=== PATIENT | male | born 1945 | race Caucasian/White ===

== ENCOUNTER → 2017-06-15 | Outpatient (CLI) | payer OTHER ==
[~2017-06-15] MED LIST: ASPI-482 PO; CELE200C PO; CINN500C2 PO; GLUC1TAB26 PO; INSU100V13 SQ; INSU100V31 SQ; LIRA0.6P2 SQ; METF100010 PO; MULT1TAB52 PO; OMEG1CAP6 PO; TRAM50TA PO; VALS1TAB14 PO; VITA400C6 PO
== END | disposition home or self-care (01) ==
LOC: SURGPAT 12:59
PROVIDERS: ATTEND Orthopaedic Surgery
DX: M17.12 Unilateral primary osteoarthritis, left knee (principal); Z96.642 Presence of left artificial hip joint
CPT/HCPCS: 36415; 87641

== ENCOUNTER 2017-07-07 06:13 | Inpatient (IN) | payer OTHER ==
--- NOTE | 2017-07-06 11:34 | PDOC1 ---
History and Physical Date of Admission Date of Admission DATE: 07/07/17 Identification/Chief Complaint Chief Complaint left knee osteoarthritis pain Problems: Source Source: Chart review History of Present Illness History of Present Illness The patient is a 71 year old male who presents to the clinic with left knee pain. He states the pain is not constant, but he can feel "contact" when he moves certain ways. He has been wearing a brace and has tried physical therapy, but neither does much for his pain. He states that he is tired of limping around. He has a history of hypertension and diabetes, for which he takes both pills and insulin. He also has a history of DVT several years ago but is not currently taking blood thinners, though he wears a compression stockings for blood clot prevention. He states his last CAD test was 50. Past Medical History Past Medical History h/o DVT, obesity, obesity hypoventilation syndrome Cardiovascular: HTN, Hyperlipidemia Endocrine: Diabetes Past Surgical History Past Surgical History: Tonsillectomy Family History Family History PE -son Family History: Obesity Social History Smoke: Quit ( - 3ppd) ALCOHOL: none Drugs: None Current Medications Current Medications Current Medications Ondansetron HCl (Zofran) 4 mg PRN Q6HRS PRN IV NAUSEA/VOMITING; Start 07/07/17 at 07:00; Stop 07/08/17 at 06:59 Fentanyl Citrate (Fentanyl 2ml Vial) 25 mcg PRN Q5MIN PRN IV MILD PAIN; Start 07/07/17 at 07:00; Stop 07/08/17 at 06:59 Fentanyl Citrate (Fentanyl 2ml Vial) 50 mcg PRN Q5MIN PRN IV MODERATE PAIN; Start 07/07/17 at 07:00; Stop 07/08/17 at 06:59 Morphine Sulfate 1 mg PRN Q10MIN PRN IV SEVERE PAIN; Start 07/07/17 at 07:00; Stop 07/08/17 at 06:59 Ringer's Solution 1,000 ml @ 30 mls/hr Q24H IV ; Start 07/07/17 at 07:00; Stop 07/07/17 at 18:59 Lidocaine HCl (Xylocaine-Mpf 1% Vial) 2 ml PRN 1X PRN ID IV START; Start at 07:00; Stop 07/08/17 at 06:59 Hydromorphone HCl (Dilaudid) 0.5 mg PRN Q10MIN PRN IV SEV PAIN, Second choice; Start 07/07/17 at 07:00; Stop 07/08/17 at 06:59 Prochlorperazine Edisylate (Compazine) 5 mg PACU PRN PRN IV NAUSEA, MRX1; Start 07/07/17 at 07:00; Stop 07/08/17 at 06:59 Active Scripts Active Reported Aspir 81 (Aspirin) 81 Mg Tablet.dr 1 Tab PO DAILY Levemir (Insulin Detemir) 100 Unit/1 Ml Vial 40 Unit SQ HS Tramadol Hcl 50 Mg Tablet 50 Mg PO Q6H PRN Celebrex (Celecoxib) 200 Mg Capsule 1 Cap PO DAILY Fhhkahzqvh-Crnxuzyjifz-Fdt Tab (Gluc/Addison-Msm#2/C/D3/Yong/Born) 1 Each Tablet 1 Each PO TID Vitamin E (Vitamin E (Dl,Tocopheryl Acet)) 400 Unit Capsule 400 Unit PO DAILY Multivitamins (Multivitamin) 1 Each Tablet 1 Tab PO DAILY Cinnamon (Cinnamon Bark) 500 Mg Capsule 500 Mg PO BID Fish Oil 1,000 Mg Capsule (Rotan-3 Fatty Acids/Fish Oil) 1 Each Capsule 1 Each PO BID Novolog (Insulin Aspart) 100 Unit/1 Ml Vial 12 Unit SQ TIDAC Diovan Hct 160-25 Mg Tablet (Valsartan/Hydrochlorothiazide) 1 Each Tablet 1 Each PO DAILY Metformin Hcl Er (Metformin Hcl) 1,000 Mg Tab.er.24 1,000 Mg PO BID76 Victoza 3-Elias (Liraglutide) 0.6 Mg/0.1 Ml Pen.injctr 1.8 Mg SQ DAILY08 Allergies Allergies: Coded Allergies: Ahefvst-Rti-Utv Reductase Inhibitor (Verified Adverse Reaction, Intermediate, 06/12/17) UNSTEADY/BLURRED VISION rosiglitazone (Verified Adverse Reaction, Intermediate, 06/12/17) WEIGHT GAIN Physical Exam General: Alert, Oriented X3, Cooperative, No acute distress HEENT: Atraumatic, EOMI Lungs: Normal air movement Heart: RRR Abdomen: Soft Extremities: No clubbing, No cyanosis, Normal pulses, Other ( mildly antalgic gait. There is trace varus alignment. No masses. No detectable effusion. Tenderness on the medial and lateral joint lines. Range of motion is 3-120 degrees. There is crepitus with range of motion, and pain at the extremes of motion. The knee is stable to varus and valgus stress without subluxation or laxity, however valgus stress is painful. Muscle strength is normal (5/5) for quadriceps and hamstrings, and muscle tone is normal. The skin is normal with no scars, rashes, lesions or ulcers. Light touch sensation is intact. No edema and no varicosities. Dorsalis pedis pulse is intact and capillary refill is normal.) Skin: No rashes, No breakdown, No significant lesion Neuro: Normal speech, Sensation intact Psych/Mental Status: Mental status NL, Mood NL Images Images IMAGING REPORT Joint survey, hips knees and ankles Clinical information: Preoperative for total knee arthroplasty Comparison: None. Findings Bones: The angle between the right hip-ankle mechanical axis and the femoral shaft is 5. The angle between the left hip-ankle mechanical axis and the femoral shaft is 5 . The mechanical axis crosses lateral to the center of the right knee indicating valgus alignment. The mechanical axis crosses medial to the center of the left knee indicating varus mechanical alignment. Joints: There is narrowing of the both knee joints. The hips and ankles show minimal degenerative changes. Soft tissue: Normal. Impression: Varus alignment of the left knee, and valgus alignment of the right knee. The difference between the mechanical axis and femoral shaft anatomic axis is 5 bilaterally. VTE Prophylaxis Ordered VTE Prophylaxis Devices: Yes VTE Pharmacological Prophylaxi: Yes Assessment/Plan Assessment/Plan We discussed the potential risks of infection, neurovascular injury, bleeding, blood clots, need for revision surgery, or other potential surgical or anesthetic complications. He is 71 years old, has left knee osteoarthritis that limits his activity, and despite some underlying risks, he would benefit from total knee arthroplasty. We discussed the expected hospitalization and recovery , and the higher risk of complications because of his diabetes and obesity. He agrees to proceed, and I don't think it is to his advantage to continue nonoperative treatment, nor to delay arthroplasty, since his health is not likely to improve in the next few years. He would best be served by total knee arthroplasty at this time. He agrees. LISTE ALEXANDER Jul 06, 2017 11:34
[2017-07-07] VITALS (8 sets, daily range): BP systolic 104–136; BP diastolic 53–74
[~2017-07-07] VITALS: Ht 185.4 cm; Wt 152.0 kg
[~2017-07-07 06:13] MED LIST changes: +CELECOXIB 200 MG CAPSULE. PO PRN; +HYDROcodone/APAP 7.5/325MG 1 TAB TABLET PO PRN; +MORPHINE SULFATE 5 MG, KETOROLAC 30 MG, ROPIVacaine 0.5% PF 60 ML, EPINEPHrine 0.5 MG i... INT ART ONE; +TRANEXAMIC ACID 1,000 MG in IV NS 50ML -- 1ST BAG INJ ONE
[2017-07-07] MEDS ORDERED: LIDOCAINE 1% PF 2 ML VIAL. ID PRN (07:00)
[2017-07-07] MEDS ORDERED: fentaNYL PF VIAL 100 MCG/2 ML VIAL IV PRN ×3 (07:00→11:45)
[2017-07-07] MEDS ORDERED: ONDANSETRON PF 4 MG/2 ML VIAL. IV PRN (07:00)
[2017-07-07] MEDS ORDERED: IV RINGERS,LACTATED 1000ML 1,000 ML IV SCH (07:00)
[2017-07-07] MEDS ORDERED: PROCHLORPERAZINE 10 MG/2 ML VIAL. IV PRN ×2 (07:00→11:45)
[2017-07-07] MEDS ORDERED: MORPHINE SULFATE 2 MG/ML DISP.SYRIN. IV PRN (07:00)
[2017-07-07] MEDS ORDERED: HYDROmorphone 2 MG/ML VIAL IV PRN (07:00)
[2017-07-07 07:41] LABS: INR 1.1 (0.8-1.1); PROTHROMBIN TIME PATIENT 13.5 SEC (11.7-14.0)
[2017-07-07] MEDS ORDERED: TRANEXAMIC ACID 1,000 MG in IV NS 50ML -- 2ND BAG INJ ONE (08:00)
[2017-07-07] MEDS ORDERED: VANCOMYCIN 1 GM VIAL. ONE (08:40)
[2017-07-07] MEDS ORDERED: PROPOFOL 20 ML IV ONE (08:51)
[2017-07-07] MEDS ORDERED: LIDOCAINE 2% PF Vial for OR 5 ML VIAL. ONE (08:51)
[2017-07-07] MEDS ORDERED: DEXAMETHASONE SOD PHOS 20 MG/5 ML VIAL. ONE (08:51)
[2017-07-07] MEDS ORDERED: ePHEDrine PF IN SALINE 50 MG/5 ML DISP.SYRIN IV ONE (08:52)
[2017-07-07] MEDS ORDERED: SUCCINYLCHOLINE 200 MG/10 ML VIAL. ONE ×2 (08:52→08:58)
[2017-07-07] MEDS ORDERED: ONDANSETRON PF 4 MG/2 ML VIAL. ONE (08:52)
[2017-07-07] MEDS ORDERED: fentaNYL PF VIAL 250 MCG/5 ML VIAL ONE (08:52)
[2017-07-07] MEDS ORDERED: ROCURONIUM 100 MG/10 ML VIAL. ONE (08:58)
[2017-07-07] MEDS ORDERED: MIDAZOLAM HCL/PF 2 MG/2 ML VIAL. ONE (09:01)
[2017-07-07] MEDS ORDERED: GLYCOPYRROLATE 1 MG/5 ML VIAL. ONE (10:26)
[2017-07-07] MEDS ORDERED: NEOSTIGMINE METHYLSULFATE 5 MG/5 ML SYRINGE. ONE (10:26)
--- NOTE | 2017-07-07 11:35 | PDOC4 ---
Operative Note Operative Note Date of Procedure: July 07, 2017 Pre-Op Diagnosis: Osteoarthritis left knee Post-Op Diagnosis: Osteoarthritis left knee Procedure: left total knee arthroplasty Surgeon: Isela Birmingham MD Molding Machine Operator Helper: Kortney Ramirez PA-C Anesthesia: General EBL: 100 mL Specimens Obtained: left knee bone and soft tissue Complications: none Implant Company: [employer] Drains: hemovac plus pain catheter Tourniquet time: 48 Minutes Tourniquet Pressure: 350 mm Hg Indications for Procedure: Arthritis pain unrelieved by nonoperative management. Findings: Severe osteoarthritis with bone on bone contact medially and at the patellofemoral joint Implants used: Size 6 left bicruciate stabilized Journey II BCS cobalt chrome femoral component, size 5 left Journey nonporous tibial baseplate, size 5 -6 10 mm left Journey II BCS XLPE articular insert, 35 mm oval Diana II resurfacing patellar component Procedure in Detail: The patient was identified in the preoperative holding area, and the correct left lower extremity was marked by me. The patient was taken to the operating room where the patient was anesthetized by the Department of Anesthesia. Preoperative antibiotics were given intravenously. Tranexamic acid 1 g was given intravenously for intraoperative hemostasis. A "time-out" procedure was performed. The patient was positioned supine on the operative table with a tourniquet on the upper left thigh. The left lower limb was thoroughly prepped and draped in sterile fashion. An impervious stockinet and adhesive drape were used such that the skin was entirely covered. An Duran leg bolanos was used. The operating team wore personal exhaust-ventilated hoods. The limb was elevated to exsanguinate it, and the tourniquet was inflated.. A midline skin incision was made with a scalpel using the patella and tibial tubercle as landmarks. Electrocautery was used for hemostasis. My assistant grocery store manager used rake retractors. A medial parapatellar arthrotomy incision was used with extension into the distal quadriceps tendon. The patella was retracted laterally and Hohmann retractors were now used by my assistant grocery store manager. Excess synovium, the menisci, and the cruciate ligaments were resected sharply. The patella was assessed and excess synovium and osteophytes around the patellar articulation were removed. The patella was measured with a caliper, cut freehand with a saw using caliper measurements, sized, and then drilled for an oval three-pegged patella component. Periarticular anesthetic injection was used in the suprapatellar pouch and distal quadriceps muscle. Whitesides's line and the transepicondylar axis were marked on the femur. An intra-medullary 5 degree cutting guide was pinned to the femur, and a distal femoral cut was made with an oscillating saw. An additional 4 mm resection was used due to the deep femoral sulcus, and deficient femoral condyle. My assistant grocery store manager held Hohmann retractors and an Army-Lupus retractor to protect the medial and lateral collateral ligaments, the patellar tendon, the skin and the other soft tissues. An anterior referencing guide was applied with external rotation of 3 to match Whitesides line. A 5-in-1 Journey II cutting guide was then applied and pinned to the femur. The posterior, anterior, and all chamfer cuts were made with the oscillating saw. An extramedullary guide was pinned to the tibia and rotational alignment and the planned resection thickness assessed. An external alignment ny was used to verify the planned cut in the varus-valgus plane and regarding posterior slope referencing the tibial tubercle, the tibial shaft, the ankle joint, and the second metatarsal. The upper tibia was cut made with an oscillating saw. My assistant grocery store manager held Hohmann retractors and a posterior cruciate ligament retractor to protect the medial and lateral collateral ligaments, the patellar tendon, the skin, the peroneal nerve and the other soft tissues. The upper tibia was sized with a trial baseplate. The posterior compartment was cleared of osteophytes and loose bodies, and posterior capsule released. Periarticular anesthetic injection was used in the posterior compartment. The box cut for a posterior stabilized component was made. A preliminary reduction was performed with a trial femur, trial tibial baseplate and trial polyethylene. Soft-tissue balancing was now performed, and extension and rotation of the alignments was checked using a guide ny in the tibial trial and a guide pin in the femur. A medial release was required, using a 10 blade scalpel, and a Arcos elevator to elevate the medial structures from the upper medial tibia. The stability was assessed using different thicknesses of tibial articular surface to find satisfactory stability and good range of motion. The rotation of the tibial component was marked on the upper tibia. Final trial reduction was now performed verifying patella tracking and tibiofemoral stability and alignment. The tibia preparation was completed with a drill, saw, and fin punch at the previously noted rotation. The final implants were verified and opened. Outer gloves were changed by the operating team. The bone cuts were washed thoroughly with the [employer] InterPulse device and dried. Two packages of Dunham + Nephew Rally HV bone cement were mixed in powdered form with 1 gm of Vancomycin, then vacuum-mixed with the monomer, and placed into a cement gun. The cut surfaces of the bone were thoroughly dried with Bower-tip suction and with laparotomy sponges for cement interdigitation. The final components were cemented into place. The knee was kept at full extension while the cement hardened, and excess cement was removed. Tranexamic acid 1 g was redosed intravenously for additional intraoperative hemostasis. A final periarticular anesthetic injection was used for pain relief. The tourniquet was released, and electrocautery was used for hemostasis. A final check of [id number]-[id number] and stability was made, and the polyethylene implant final size was chosen. The polyethylene implant was secured to the tibial baseplate, and the knee was reduced a final time. Thorough irrigation was used. Hemovac and pain catheter were used.The arthrotomy was closed with interrupted [id number] #1 PDS suture. The arthrotomy incision was then run with #1 STRATAFIX Symmetric PDS Plus Knotless suture. The subcutaneous tissues were closed with #2-0 Vicryl by my assistant grocery store manager. The skin was approximated with herbert by my assistant grocery store manager. The skin incision was then covered and reinforced with a Prevena sterile suction dressing. Needle and sponge counts were correct. There were no apparent complications. The patient returned to the recovery room in stable condition. ISELA BIRMINGHAM MD Jul 07, 2017 11:35
[2017-07-07] MEDS ORDERED: traMADol 50 MG TABLET PO PRN ×2 (11:45)
[2017-07-07] MEDS ORDERED: MORPHINE SULFATE 10 MG/ML VIAL. IV PRN (11:45)
[2017-07-07] MEDS ORDERED: MORPHINE SULFATE 4 MG/ML DISP.SYRIN. IV PRN ×3 (11:45)
[2017-07-07] MEDS ORDERED: diphenhydrAMINE 50 MG/ML VIAL IV PRN (11:45)
[2017-07-07] MEDS ORDERED: PROCHLORPERAZINE 5 MG TABLET. PO PRN (11:45)
[2017-07-07] MEDS ORDERED: DEXTROSE 50% 25 GM / 50ML DISP.SYRIN. IV PRN ×2 (11:45→14:45)
[2017-07-07] MEDS ORDERED: ACETAMINOPHEN 325 MG TABLET. PO PRN (11:45)
[2017-07-07] MEDS ORDERED: METOCLOPRAMIDE HCL 10 MG/2 ML VIAL. IV PRN (11:45)
[2017-07-07] MEDS ORDERED: 0.9 % SODIUM CHLORIDE 10 ML DISP.SYRIN. IV PRN (11:45)
[2017-07-07] MEDS ORDERED: CALCIUM CARBONATE 500 MG TAB.CHEW PO PRN (11:45)
[2017-07-07] MEDS ORDERED: oxyCODONE/APAP 5/325 1 TAB TABLET PO PRN (11:45)
[2017-07-07] MEDS ORDERED: ZOLPIDEM 5 MG TABLET. PO PRN (11:45)
[2017-07-07] MEDS ORDERED: oxyCODONE/APAP 7.5/325 1 TAB TABLET PO PRN (11:45)
[2017-07-07] MEDS: fentaNYL PF VIAL 100 MCG/2 ML VIAL IV PRN ×3 (12:00→12:26)
[2017-07-07] MEDS ORDERED: INSULIN ASPART 100 UNIT/ML 10ML VIAL. SQ ONE (12:15)
--- NOTE | 2017-07-07 12:49 | RAD ---
Left knee, 2 views, 07/07/2017: History: Postop evaluation A total knee prosthesis is in place in satisfactory position. A small radiopacity projected over the soft tissues laterally may represent a periarticular calcification or a small drop of cement. Surgical skin clips and a drain overlie the operative site anteriorly. There is no evidence of a retained surgical instrument, needle or radiopaque sponge on these 2 views. IMPRESSION: No significant postoperative abnormality is detected.
[2017-07-07] MEDS ORDERED: INFLUENZA VAX SCREEN BY RX. MC ONE (13:30)
[2017-07-07] MEDS: IV DEXTROSE 5 %-0.45 % NACL 1,000 ML IV SCH ×2 (14:52→20:41)
[2017-07-07] MEDS: SENNOSIDES/DOCUSATE 8.6/50MG TABLET. PO SCH (14:52)
[2017-07-07] MEDS: HYDROcodone/APAP 7.5/325MG 1 TAB TABLET PO PRN ×2 (14:54→20:35)
[2017-07-07] MEDS: hydroCHLOROthiazide 25 MG TABLET PO SCH (15:00)
[2017-07-07] MEDS: LOSARTAN POTASSIUM 50 MG TABLET. PO SCH (15:00)
[2017-07-07] MEDS ORDERED: WARFARIN 7.5 MG TABLET. PO ONE (16:00)
[2017-07-07] MEDS: FERROUS SULFATE 325 MG TABLET. PO SCH (16:21)
[2017-07-07] MEDS: metFORMIN XR 500 MG TAB.ER.24H PO SCH (17:03)
[2017-07-07] MEDS: INSULIN ASPART 300 UNITS/3 ML INSULN.PEN SQ SCH ×2 (17:04→17:07)
[2017-07-07] MEDS: KETOROLAC 30 MG, BUPIVACAINE MPF 0.25% 20 ML, EPINEPHrine 0.5 MG in TOTAL VOLUME SYRING... INT ART SCH (17:09)
[2017-07-07] MEDS: CELECOXIB 200 MG CAPSULE. PO SCH (20:36)
[2017-07-07] MEDS: INSULIN DETEMIR 300 UNITS/3 ML INSULN.PEN. SQ SCH (21:41)
[2017-07-08] MEDS: HYDROcodone/APAP 7.5/325MG 1 TAB TABLET PO PRN ×4 (02:45→15:40)
[2017-07-08 02:57] VITALS: BP 132/72
[2017-07-08] MEDS: KETOROLAC 30 MG, BUPIVACAINE MPF 0.25% 20 ML, EPINEPHrine 0.5 MG in TOTAL VOLUME SYRING... INT ART SCH (05:42)
[2017-07-08] MEDS ORDERED: MAGNESIUM HYDROXIDE 2,400 MG/30 ML ORAL.SUSP. PO PRN (06:00)
[2017-07-08 06:19] VITALS: BP 134/73
[2017-07-08 06:34] LABS: HEMATOCRIT 33.8 % (39.0-53.0); HEMOGLOBIN 11.5 g/dL (13.0-17.5)
[2017-07-08 06:52] LABS: INR 1.2 (0.8-1.1); PROTHROMBIN TIME PATIENT 14.9 SEC (11.7-14.0)
[2017-07-08] MEDS: IV DEXTROSE 5 %-0.45 % NACL 1,000 ML IV SCH ×2 (07:40→17:40)
[2017-07-08] MEDS ORDERED: NON FORMULARY ITEM (Liraglutide (Victoza 3-Pak) 1.8 MG) SQ SCH (08:00)
[2017-07-08 08:20] VITALS: BP 106/64
[2017-07-08] MEDS: FERROUS SULFATE 325 MG TABLET. PO SCH ×2 (08:21→17:08)
[2017-07-08] MEDS: metFORMIN XR 500 MG TAB.ER.24H PO SCH ×2 (08:22→17:08)
[2017-07-08] MEDS: SENNOSIDES/DOCUSATE 8.6/50MG TABLET. PO SCH (08:22)
[2017-07-08] MEDS: MULTIVITAMIN with MINERAL TABLET. PO SCH (08:22)
[2017-07-08] MEDS: CELECOXIB 200 MG CAPSULE. PO SCH ×2 (08:22→20:36)
[2017-07-08] MEDS: INSULIN ASPART 300 UNITS/3 ML INSULN.PEN SQ SCH ×6 (08:28→17:12)
[2017-07-08] MEDS ORDERED: FLU VACC QS2017-18 (36MOS+)/PF 0.5 ML SYRINGE. VAX IM ONE (09:00)
--- NOTE | 2017-07-08 09:45 | PDOC ---
PROGRESS NOTES Subjective Subjective No complaints Objective Vital Signs Vital Signs Date Time Temp Pulse Resp B/P (MAP) Pulse Ox O2 Delivery O2 Flow Rate FiO2 07/08/17 09:30 Room Air 07/08/17 06:19 97.7 67 20 134/73 (93) 99 97.7 07/07/17 20:30 2.0 Physical Exam Dressing dry. Pain catheter and Hemovac in place. Good dorsiflexion and plantarflexion of the foot with no evidence of neurovascular injury or DVT. Calves are soft and non-tender. Negative Homans. Peripheral pulses and light touch sensation intact. Labs Laboratory Tests Test 07/07/17 07:05 07/07/17 07:10 07/07/17 11:55 07/07/17 16:13 Glucose (Fingerstick) 119 mg/dL (70-99) 203 mg/dL (70-99) 240 mg/dL (70-99) Prothrombin Time 13.5 SEC (11.7-14.0) Prothromb Time International Ratio 1.1 (0.8-1.1) Activated Partial Thromboplast Time 27 SEC (24-38) Test 07/07/17 20:32 07/08/17 06:00 07/08/17 06:55 Glucose (Fingerstick) 229 mg/dL (70-99) 161 mg/dL (70-99) Hemoglobin 11.5 g/dL (13.0-17.5) Hematocrit 33.8 % (39.0-53.0) Mean Corpuscular Hemoglobin Concent 34 g/dL (31-37) Prothrombin Time 14.9 SEC (11.7-14.0) Prothromb Time International Ratio 1.2 (0.8-1.1) Laboratory Tests Test 07/07/17 11:55 07/07/17 16:13 07/07/17 20:32 07/08/17 06:00 Glucose (Fingerstick) 203 mg/dL (70-99) 240 mg/dL (70-99) 229 mg/dL (70-99) Hemoglobin 11.5 g/dL (13.0-17.5) Hematocrit 33.8 % (39.0-53.0) Mean Corpuscular Hemoglobin Concent 34 g/dL (31-37) Prothrombin Time 14.9 SEC (11.7-14.0) Prothromb Time International Ratio 1.2 (0.8-1.1) Test 07/08/17 06:55 Glucose (Fingerstick) 161 mg/dL (70-99) Imaging Postoperative x-rays reviewed by me, showing satisfactory total knee replacement , with no apparent complications. IMAGING REPORT Signed PATIENT: HOMER TRIPP ACCOUNT: [id number] : 1945 LOCATION: [facility] AGE: 71 SEX: M EXAM STATUS: ADM IN ORD. PHYSICIAN: LISET ALEXANDER REASON: POST OP PROCEDURE: KNEE LEFT 2V Left knee, 2 views, 07/07/2017: History: Postop evaluation A total knee prosthesis is in place in satisfactory position. A small radiopacity projected over the soft tissues laterally may represent a periarticular calcification or a small drop of cement. Surgical skin clips and a drain overlie the operative site anteriorly. There is no evidence of a retained surgical instrument, needle or radiopaque sponge on these 2 views. IMPRESSION: No significant postoperative abnormality is detected. Assessment Assessment POD #1 TKA Problems: Plan Plan of Care Continue POC including DVT prophylaxis and physical therapy ISELA VALERIO MD Jul 08, 2017 09:45
[2017-07-08 11:50] VITALS: BP 120/69
[2017-07-08] MEDS: hydroCHLOROthiazide 25 MG TABLET PO SCH (11:54)
[2017-07-08] MEDS: LOSARTAN POTASSIUM 50 MG TABLET. PO SCH (11:54)
[2017-07-08] MEDS ORDERED: BISACODYL 10 MG SUPP.RECT. PR PRN (16:00)
[2017-07-08 19:00] VITALS: BP 108/54
[2017-07-08] MEDS ORDERED: WARFARIN 5 MG TABLET. PO ONE (19:00)
[2017-07-08] MEDS: HYDROcodone/APAP 10/325 1 TAB TABLET PO PRN (20:37)
[2017-07-08] MEDS: INSULIN DETEMIR 300 UNITS/3 ML INSULN.PEN. SQ SCH (20:42)
[2017-07-09] MEDS: HYDROcodone/APAP 7.5/325MG 1 TAB TABLET PO PRN ×5 (03:08→23:59)
[2017-07-09 05:04] LABS: HEMATOCRIT 34.4 % (39.0-53.0); HEMOGLOBIN 11.3 g/dL (13.0-17.5)
[2017-07-09 05:23] LABS: INR 1.4 (0.8-1.1); PROTHROMBIN TIME PATIENT 16.5 SEC (11.7-14.0)
[2017-07-09 05:51] VITALS: BP 100/62
[2017-07-09] MEDS: metFORMIN XR 500 MG TAB.ER.24H PO SCH ×2 (06:28→17:03)
[2017-07-09] MEDS: INSULIN ASPART 300 UNITS/3 ML INSULN.PEN SQ SCH ×6 (07:56→17:07)
[2017-07-09] MEDS: FERROUS SULFATE 325 MG TABLET. PO SCH ×2 (08:35→17:04)
[2017-07-09] MEDS: MULTIVITAMIN with MINERAL TABLET. PO SCH (08:35)
[2017-07-09] MEDS: CELECOXIB 200 MG CAPSULE. PO SCH ×2 (08:35→21:07)
[2017-07-09] MEDS: hydroCHLOROthiazide 25 MG TABLET PO SCH (08:37)
[2017-07-09] MEDS: LOSARTAN POTASSIUM 50 MG TABLET. PO SCH (08:38)
[2017-07-09] MEDS: SENNOSIDES/DOCUSATE 8.6/50MG TABLET. PO SCH (09:00)
--- NOTE | 2017-07-09 11:59 | PDOC ---
PROGRESS NOTES Subjective Subjective Doing well. Reports mild increase in pain today. Prevena is beeping so wound care nurse, Moses, is reinforcing. Objective Vital Signs Vital Signs Date Time Temp Pulse Resp B/P (MAP) Pulse Ox O2 Delivery O2 Flow Rate FiO2 07/09/17 08:38 83 118/68 07/09/17 08:36 Room Air 07/09/17 06:27 18 95 07/09/17 05:51 97.9 97.9 07/07/17 20:30 2.0 Physical Exam Postop dressing, Hemovac drain, and pain catheter have been removed. Prevena remains intact, but beeping. Moses, wound care nurse, is currently trying to reinforce seal. Calf soft and nontender with a negative Silverio's sign. Good dorsiflexion and plantarflexion with no evidence of neurovascular injury. Peripheral pulses and light touch sensation intact. Labs Laboratory Tests Test 07/07/17 16:13 07/07/17 20:32 07/08/17 06:00 07/08/17 06:55 Glucose (Fingerstick) 240 mg/dL (70-99) 229 mg/dL (70-99) 161 mg/dL (70-99) Hemoglobin 11.5 g/dL (13.0-17.5) Hematocrit 33.8 % (39.0-53.0) Mean Corpuscular Hemoglobin Concent 34 g/dL (31-37) Prothrombin Time 14.9 SEC (11.7-14.0) Prothromb Time International Ratio 1.2 (0.8-1.1) Test 07/08/17 11:34 07/08/17 16:58 07/08/17 20:31 07/09/17 04:42 Glucose (Fingerstick) 118 mg/dL (70-99) 98 mg/dL (70-99) 110 mg/dL (70-99) Hemoglobin 11.3 g/dL (13.0-17.5) Hematocrit 34.4 % (39.0-53.0) Mean Corpuscular Hemoglobin Concent 33 g/dL (31-37) Prothrombin Time 16.5 SEC (11.7-14.0) Prothromb Time International Ratio 1.4 (0.8-1.1) Test 07/09/17 06:22 07/09/17 11:11 Glucose (Fingerstick) 126 mg/dL (70-99) 71 mg/dL (70-99) Laboratory Tests Test 07/08/17 16:58 07/08/17 20:31 07/09/17 04:42 07/09/17 06:22 Glucose (Fingerstick) 98 mg/dL (70-99) 110 mg/dL (70-99) 126 mg/dL (70-99) Hemoglobin 11.3 g/dL (13.0-17.5) Hematocrit 34.4 % (39.0-53.0) Mean Corpuscular Hemoglobin Concent 33 g/dL (31-37) Prothrombin Time 16.5 SEC (11.7-14.0) Prothromb Time International Ratio 1.4 (0.8-1.1) Test 07/09/17 11:11 Glucose (Fingerstick) 71 mg/dL (70-99) Assessment Assessment POD #2 left TKA Problems: Plan Plan of Care Continue POC including DVT ppx and therapy. Plan for discharge to home tomorrow afternoon. LISET ALEXANDER Jul 09, 2017 11:59
[2017-07-09] MEDS ORDERED: WARFARIN 5 MG TABLET. PO ONE (16:00)
--- NOTE | 2017-07-09 16:04 | PATHOLOGY ---
PATHOLOGY REPORT * * * * * * * * FINAL DIAGNOSIS: Segments of bone and soft tissue, left total knee arthroplasty: - Advanced degenerative arthritis. (JPM:; 07/09/2017) REPORT ELECTRONICALLY SIGNED BY: Tde Vargas M.D. DATE/TIME: 07/09/2017 16:03 * * * * * * * * GROSS PATHOLOGY: Received in formalin labeled "Homer Tripp, left knee bone and tissue," are multiple segments of bone, including tibial plateau, measuring 10.2 x 8.8 x 2.2 cm in aggregate dimensions admixed with soft tissue; meniscus is present. The specimen shows focal eburnation of the articular surfaces. Hotel Manager sections of bone and soft tissue are submitted in cassette A1, following decalcification. (CAA; 07/08/2017) INITIAL CPT CODE(S): A; 74004, 56748 Professional services [place] [address] Technical services performed by [facility] at [address] [place] [address], [facility] [address], [place] [address]. SPECIMEN(S) RECEIVED: A.Left knee bone and tissue CLINICAL HISTORY: Osteoarthritis PATIENT: HOMER TRIPP /AGE: 10 1945 (Age: 71) PATIENT #: [id number] ALT CASE #: SPECIMEN COLLECTION DATE: 07/07/2017 SPECIMEN RECEIVED DATE: 07/07/2017 [facility] - [address] [place] [address] - PHONE: [phone] * * * END OF REPORT * * *
[2017-07-09 18:09] VITALS: BP 137/87
[2017-07-09] MEDS: HYDROcodone/APAP 10/325 1 TAB TABLET PO PRN (21:08)
[2017-07-09] MEDS: INSULIN DETEMIR 300 UNITS/3 ML INSULN.PEN. SQ SCH (21:14)
[2017-07-10 00:01] VITALS: BP 132/54
[2017-07-10] MEDS: HYDROcodone/APAP 7.5/325MG 1 TAB TABLET PO PRN ×3 (05:39→14:26)
[2017-07-10 05:54] VITALS: BP 116/58
[2017-07-10 05:58] LABS: INR 1.7 (0.8-1.1)
[2017-07-10] MEDS: INSULIN ASPART 300 UNITS/3 ML INSULN.PEN SQ SCH ×4 (08:00→12:08)
[2017-07-10] MEDS: SENNOSIDES/DOCUSATE 8.6/50MG TABLET. PO SCH (08:15)
[2017-07-10] MEDS: CELECOXIB 200 MG CAPSULE. PO SCH (08:16)
[2017-07-10] MEDS: MULTIVITAMIN with MINERAL TABLET. PO SCH (08:16)
[2017-07-10] MEDS: FERROUS SULFATE 325 MG TABLET. PO SCH (08:17)
[2017-07-10] MEDS: metFORMIN XR 500 MG TAB.ER.24H PO SCH (08:17)
[2017-07-10] MEDS: LOSARTAN POTASSIUM 50 MG TABLET. PO SCH (08:29)
[2017-07-10] MEDS: hydroCHLOROthiazide 25 MG TABLET PO SCH (08:30)
[2017-07-10 10:11] LABS: HEMATOCRIT 34.7 % (39.0-53.0); HEMOGLOBIN 11.5 g/dL (13.0-17.5)
--- NOTE | 2017-07-10 10:40 | PDOC ---
PROGRESS NOTES Subjective Subjective Doing well. Planning for discharge later today after PT. Prevena lost its seal again overnight, so it was turned off and removed by wound care. Objective Vital Signs Vital Signs Date Time Temp Pulse Resp B/P (MAP) Pulse Ox O2 Delivery O2 Flow Rate FiO2 07/10/17 10:21 18 Room Air 07/10/17 08:29 77 113/45 07/10/17 05:54 98.4 96 98.4 07/07/17 20:30 2.0 Physical Exam Expected swelling. Incision is clean, dry, and intact with herbert intact. No drainage. Calf soft and nontender. Negative Homans. Good AROM ankle. Peripheral pulses and light touch sensation intact. Labs Laboratory Tests Test 07/08/17 11:34 07/08/17 16:58 07/08/17 20:31 07/09/17 04:42 Glucose (Fingerstick) 118 mg/dL (70-99) 98 mg/dL (70-99) 110 mg/dL (70-99) Hemoglobin 11.3 g/dL (13.0-17.5) Hematocrit 34.4 % (39.0-53.0) Mean Corpuscular Hemoglobin Concent 33 g/dL (31-37) Prothrombin Time 16.5 SEC (11.7-14.0) Prothromb Time International Ratio 1.4 (0.8-1.1) Test 07/09/17 06:22 07/09/17 11:11 07/09/17 16:39 07/09/17 21:07 Glucose (Fingerstick) 126 mg/dL (70-99) 71 mg/dL (70-99) 141 mg/dL (70-99) 122 mg/dL (70-99) Test 07/10/17 05:30 07/10/17 06:37 Hemoglobin 11.5 g/dL (13.0-17.5) Hematocrit 34.7 % (39.0-53.0) Mean Corpuscular Hemoglobin Concent 33 g/dL (31-37) Prothrombin Time 19.0 SEC (11.7-14.0) Prothromb Time International Ratio 1.7 (0.8-1.1) Glucose (Fingerstick) 120 mg/dL (70-99) Laboratory Tests Test 07/09/17 11:11 07/09/17 16:39 07/09/17 21:07 07/10/17 05:30 Glucose (Fingerstick) 71 mg/dL (70-99) 141 mg/dL (70-99) 122 mg/dL (70-99) Hemoglobin 11.5 g/dL (13.0-17.5) Hematocrit 34.7 % (39.0-53.0) Mean Corpuscular Hemoglobin Concent 33 g/dL (31-37) Prothrombin Time 19.0 SEC (11.7-14.0) Prothromb Time International Ratio 1.7 (0.8-1.1) Test 07/10/17 06:37 Glucose (Fingerstick) 120 mg/dL (70-99) Assessment Assessment POD #3 TKA Problems: Plan Plan of Care Discharge later today, to home. Continue DVT prophylaxis with Coumadin and physical therapy. The patient lives in [place], so he will have his INR drawn there on 07/13/17 and the lab will contact [facility] for dosage instructions. F/U 10-14 days. LISET ALEXANDER Jul 10, 2017 10:40
--- NOTE | 2017-07-10 10:45 | PDOC3 ---
Discharge Summary Visit Information Date of Admission: Jul 07, 2017 Date of Discharge: Jul 10, 2017 Admitting Diagnosis: left knee osteoarthritis pain Brief Hospital Course Allergies Allergies Coded Allergies Type Severity Reaction Last Updated Verified Ftondbg-Uos-Qlc Reductase Inhibitor Adverse Reaction Intermediate 07/07/17 Yes rosiglitazone Adverse Reaction Intermediate 07/07/17 Yes Vital Signs Vital Signs Date Time Temp Pulse Resp B/P (MAP) Pulse Ox O2 Delivery O2 Flow Rate FiO2 07/10/17 10:21 18 Room Air 07/10/17 08:29 77 113/45 07/10/17 05:54 98.4 96 98.4 Lab Results Laboratory Tests Test 07/08/17 11:34 07/08/17 16:58 07/08/17 20:31 07/09/17 04:42 Glucose (Fingerstick) 118 mg/dL (70-99) 98 mg/dL (70-99) 110 mg/dL (70-99) Hemoglobin 11.3 g/dL (13.0-17.5) Hematocrit 34.4 % (39.0-53.0) Mean Corpuscular Hemoglobin Concent 33 g/dL (31-37) Prothrombin Time 16.5 SEC (11.7-14.0) Prothromb Time International Ratio 1.4 (0.8-1.1) Test 07/09/17 06:22 07/09/17 11:11 07/09/17 16:39 07/09/17 21:07 Glucose (Fingerstick) 126 mg/dL (70-99) 71 mg/dL (70-99) 141 mg/dL (70-99) 122 mg/dL (70-99) Test 07/10/17 05:30 07/10/17 06:37 Hemoglobin 11.5 g/dL (13.0-17.5) Hematocrit 34.7 % (39.0-53.0) Mean Corpuscular Hemoglobin Concent 33 g/dL (31-37) Prothrombin Time 19.0 SEC (11.7-14.0) Prothromb Time International Ratio 1.7 (0.8-1.1) Glucose (Fingerstick) 120 mg/dL (70-99) Laboratory Tests Test 07/09/17 11:11 07/09/17 16:39 07/09/17 21:07 07/10/17 05:30 Glucose (Fingerstick) 71 mg/dL (70-99) 141 mg/dL (70-99) 122 mg/dL (70-99) Hemoglobin 11.5 g/dL (13.0-17.5) Hematocrit 34.7 % (39.0-53.0) Mean Corpuscular Hemoglobin Concent 33 g/dL (31-37) Prothrombin Time 19.0 SEC (11.7-14.0) Prothromb Time International Ratio 1.7 (0.8-1.1) Test 07/10/17 06:37 Glucose (Fingerstick) 120 mg/dL (70-99) Brief Hospital Course 71 year old who presented with left knee osteoarthritis, for elective total knee arthroplasty. The patient underwent left total knee arthroplasty under general anesthesia the day of admission. Perioperative antibiotics and DVT prophylaxis were used. Postoperatively physical therapy and case management were consulted. The patient progressed and is stable for discharge. Discharge Information Condition at Discharge: Stable Follow Up: Weeks (2) Disposition/Orders: D/C to Home Scheduled Aspirin (Aspir 81), 1 TAB PO DAILY, (Reported) Celecoxib (Celebrex), 1 CAP PO DAILY, (Reported) Cinnamon Bark (Cinnamon), 500 MG PO BID, (Reported) Gluc/Addison-Msm#2/C/D3/Yong/Born (Qzffpauynd-Fjrkbvhwdtc-Qaa Tab), 1 EACH PO TID, (Reported) Insulin Aspart (Novolog), 12 UNIT SQ TIDAC, (Reported) Insulin Detemir (Levemir), 40 UNIT SQ HS, (Reported) Liraglutide (Victoza 3-Elias), 1.8 MG SQ DAILY08, (Reported) Metformin Hcl (Metformin Hcl Er), 1,000 MG PO BID76, (Reported) Multivitamin (Multivitamins), 1 TAB PO DAILY, (Reported) [place]-3 Fatty Acids/Fish Oil (Fish Oil 1,000 Mg Capsule), 1 EACH PO BID, ( Reported) Valsartan/Hydrochlorothiazide (Diovan Hct 160-25 Mg Tablet), 1 EACH PO DAILY, ( Reported) Vitamin E (Dl,Tocopheryl Acet) (Vitamin E), 400 UNIT PO DAILY, (Reported) Scheduled PRN Tramadol Hcl (Tramadol Hcl), 50 MG PO Q6H PRN for PAIN, (Reported) Patient Instructions Patient Instructions Patient Instructions Continue to WBAT with walker. Change dressings daily, cleansing with chlorhexidine each time. F/U with [facility] in 10-14 days. Call for appointment. Physical therapy for TKA Continue DVT prophylaxis. Coumadin clinic for dosing. You may have your INR lab drawn at the lab of your choice in [place] on 07/13/17, and they will contact [facility] Coumadin clinic for dosage instructions. LISET ALEXANDER Jul 10, 2017 10:45
[2017-07-10] MEDS ORDERED: WARF3TAB54 PO (13:50)
[2017-07-10] MEDS ORDERED: HYDR-2762 PO (13:58)
[2017-07-10] MEDS ORDERED: WARFARIN 3 MG TABLET. PO ONE (14:00)
[2017-07-10] MEDS ORDERED: FERR-26 PO (14:09)
[2017-07-10 14:45] VITALS: BP 116/48
== END 2017-07-10 14:50 | disposition home or self-care (01) | DRG 470 ==
LOC: OPSVCIP 06:13 → EDUNIT# 12:30 → 4 SOUTHEST 12:52
PROVIDERS: ADMIT Orthopaedic Surgery; ATTEND Orthopaedic Surgery
PROC: 0SRD0J9 Replacement of Left Knee Joint with Synthetic Substitute, Cemented, Open Approach (ICD-10-PCS; principal; 2017-07-07 09:10)
DX: M17.12 Unilateral primary osteoarthritis, left knee (principal); E11.9 Type 2 diabetes mellitus without complications; E66.2 Morbid (severe) obesity with alveolar hypoventilation; E78.5 Hyperlipidemia, unspecified; I10 Essential (primary) hypertension; I25.10 Atherosclerotic heart disease of native coronary artery without angina pectoris; Z86.718 Personal history of other venous thrombosis and embolism; Z90.89 Acquired absence of other organs; Z88.1 Allergy status to other antibiotic agents; Z91.09 Other allergy status, other than to drugs and biological substances; Z83.6 Family history of other diseases of the respiratory system; Z84.89 Family history of other specified conditions
CPT/HCPCS: 36415; 73560; 82962; 85014; 85018; 85610; 85730; 86850; 86900; 86901; 88305; 88311; C1713; J0171; J0330; J0690; J1100; J1815; J1885; J2250; J2270; J2405; J2704; J2710; J2795; J3010; J3370; J3490; J7030; J7120; 97116; 97150; 97530; 97535; C1769; J2001

== ENCOUNTER → 2019-01-28 | Day surgery (SDC) | payer MEDICARE ==
[~2019-01-28] MED LIST changes: -CELECOXIB 200 MG CAPSULE. PO PRN; +FERR325T14 PO; +HYDR-2765 PO; -HYDROcodone/APAP 7.5/325MG 1 TAB TABLET PO PRN; +HYDROmorphone 2 MG/ML VIAL IV PRN; +IV RINGERS,LACTATED 1000ML 1,000 ML IV SCH; +LIDOCAINE 2% PF 5 ML VIAL. ONE; +LOSA1TAB22 PO; +MORPHINE SULFATE 2 MG/ML VIAL. IV PRN; -MORPHINE SULFATE 5 MG, KETOROLAC 30 MG, ROPIVacaine 0.5% PF 60 ML, EPINEPHrine 0.5 MG i... INT ART ONE; +ONDANSETRON PF 4 MG/2 ML VIAL. IV PRN; +PROCHLORPERAZINE 10 MG/2 ML VIAL. IV PRN; +PROPOFOL 40 ML IV ONE; -TRANEXAMIC ACID 1,000 MG in IV NS 50ML -- 1ST BAG INJ ONE; +WARF3TAB54 PO; +fentaNYL PF VIAL 100 MCG/2 ML VIAL IV PRN
[2019-01-28 10:46] VITALS: BP 134/75
== END | disposition home or self-care (01) ==
LOC: ENDOS 08:47
PROVIDERS: ATTEND Internal Medicine Gastroenterology
DX: Z12.11 Encounter for screening for malignant neoplasm of colon (principal); K57.30 Diverticulosis of large intestine without perforation or abscess without bleeding; K64.0 First degree hemorrhoids; I10 Essential (primary) hypertension; E11.9 Type 2 diabetes mellitus without complications; G47.30 Sleep apnea, unspecified; Z86.010 Personal history of colon polyps; Z88.8 Allergy status to other drugs, medicaments and biological substances; Z79.84 Long term (current) use of oral hypoglycemic drugs; Z79.899 Other long term (current) drug therapy; Z79.82 Long term (current) use of aspirin; Z96.652 Presence of left artificial knee joint
CPT/HCPCS: G0105; J2001; J2704; 45378

== ENCOUNTER 2019-07-10 17:57 | Inpatient (IN) | payer MEDICARE ==
[~2019-07-10] VITALS: Ht 185.4 cm; Wt 150.8 kg
[2019-07-10 17:00] VITALS: BP 179/60
[~2019-07-10 17:57] MED LIST changes: -HYDROmorphone 2 MG/ML VIAL IV PRN; -IV RINGERS,LACTATED 1000ML 1,000 ML IV SCH; -LIDOCAINE 2% PF 5 ML VIAL. ONE; -MORPHINE SULFATE 2 MG/ML VIAL. IV PRN; -ONDANSETRON PF 4 MG/2 ML VIAL. IV PRN; -PROCHLORPERAZINE 10 MG/2 ML VIAL. IV PRN; -PROPOFOL 40 ML IV ONE; -fentaNYL PF VIAL 100 MCG/2 ML VIAL IV PRN
--- NOTE | 2019-07-10 18:05 | PDOC1 ---
History and Physical Date of Admission Date of Admission DATE: 07/10/19 TIME: 18:05 Identification/Chief Complaint Chief Complaint Chest pain Source Source: Patient History of Present Illness History of Present Illness Mr Neves is a 73-year-old male w/ PMHx DM, HTN, KATERYNA on CPAP, h/o RLE DVT, ex- smoker who presents with chest heaviness and difficulty breathing that started this afternoon around 2pm. Worse with exertion. No radiation. No nausea or vomiting. No diaphoresis. Patient has been getting evaluated by his primary care physician for possibility of asthma versus COPD, recently. Patient is a former smoker having stopped in the 1970s. EKG shows a sinus rhythm at 98 bpm, normal axis, QTC of 4 and 26 ms, no ST elevations. Troponin was 0.202 and glucose was 269. Aspirin was ordered but not given because patient had taken 325 mg of aspirin prior to arrival. He was given a breathing treatment which did improve his tightness. While patient's d-dimer is elevated, it is within the appropriate range based on his age. He was called for transfer from [place] to [place] for concern of impending acute coronary syndrome. Patient wants to make note that he has an appointment with Dr. Gray from pulmonology tomorrow at 12:30pm and has h/o elevated right hemidiaphragm. Past Medical History Cardiovascular: HTN, Hyperlipidemia Pulmonary: Other (KATERYNA on CPAP) GI: No pertinent hx Heme/Onc: No pertinent hx Hepatobiliary: No pertinent hx Psych: No pertinent hx Rheumatologic: No pertinent hx Infectious disease: No pertinent hx ENT: No pertinent hx Renal/: No pertinent hx Endocrine: Diabetes Dermatology: No pertinent hx Past Surgical History Past Surgical History: Total knee replacement (L TKR), Tonsillectomy Family History Family History: Cancer (Mother - cervical), Diabetes, Obesity Social History ALCOHOL: none Drugs: None Current Medications Current Medications Active Scripts Active Reported Losartan-Hctz 100-25 Mg Tab (Losartan/Hydrochlorothiazide) 1 Each Tablet 1 Each PO DAILY Jukzacxhbs-Rrljjgtfvbt-Mwc Tab (Gluc/Addison-Msm#2/C/D3/Yong/Born) 1 Each Tablet 1 Each PO TID Meds not given this hospital admission. May resume home medications as approved by Physician. Multivitamins (Multivitamin) 1 Each Tablet 1 Tab PO DAILY LAST DOSE GIVEN: DATE:07/10/17 TIME:9:00 a.m. Cinnamon (Cinnamon Bark) 500 Mg Capsule 500 Mg PO BID Meds not given this hospital admission. May resume home medications as approved by Physician. Novolog (Insulin Aspart) 100 Unit/1 Ml Vial 12 Unit SQ TIDAC LAST DOSE GIVEN: DATE:07/10/17 TIME:12:00 Metformin Hcl Er (Metformin Hcl) 1,000 Mg Tab.er.24 1,000 Mg PO BID76 LAST DOSE GIVEN: DATE:07/10/17 TIME:8:00 a.m. Victoza 3-Elias (Liraglutide) 0.6 Mg/0.1 Ml Pen.injctr 1.8 Mg SQ DAILY08 Meds not given this hospital admission. May resume home medications as approved by Physician. Allergies Allergies: Coded Allergies: Psrgivg-Zhc-Fgq Reductase Inhibitor (Verified Adverse Reaction, Intermediate, 01/28/19) UNSTEADY/BLURRED VISION rosiglitazone (Verified Adverse Reaction, Intermediate, 01/28/19) WEIGHT GAIN ROS General: YES: Fatigue; No: Chills, Night Sweats, Malaise, Appetite, Other PSYCHOLOGICAL ROS: No: Anxiety, Behavioral Disorder, Concentration difficultie, Decreased libido, Depression, Disorientation, Hallucinations, Hostility, Irritablity, Memory difficulties, Mood Swings, Obsessive thoughts, Physical abuse, Sexual abuse, Sleep disturbances, Suicidal ideation, Other Eyes: No Blurry vision, No Decreased vision, No Double vision, No Dry eyes, No Excessive tearing, No Eye Pain, No Itchy Eyes, No Loss of vision, No Photophobia, No Scotomata, No Uses contacts, No Uses glasses, No Other HEENT: No: Heacaches, Visual Changes, Hearing change, Nasal congestion, Nasal discharge, Oral lesions, Sinus pain, Sore Throat, Epistaxis, Sneezing, Snoring, Tinnitus, Vertigo, Vocal changes, Other ALLERGY AND IMMUNOLOGY: No: Hives, Insect Bite Sensitivity, Itchy/Watery Eyes, Nasal Congestion, Post Nasal Drip, Seasonal Allergies, Other Hematological and Lymphatic: No: Bleeding Problems, Blood Clots, Blood Transfusions, Brusing, Night Sweats, Pallor, Swollen Lymph Nodes, Other ENDOCRINE: No: Breast Changes, Galactorrhea, Hair Pattern Changes, Hot Flashes, Malaise/lethargy, Mood Swings, Palpitations, Polydipsia/polyuria, Skin Changes, Temperature Intolerance, Unexpected Weight Changes, Other Breast: No New/Changing Breast Lumps, No Nipple changes, No Nipple discharge, No Other Respiratory: YES: Shortness of breath, SOB with excertion; No: Cough, Hemoptysis, Orthopnea, Pleuritic Pain, Sputum Changes, Stridor, Tachypnea, Wheezing, Other Cardiovascular: yes Chest Pain; No Palpitations, No Orthopnea, No Paroxysmal Noc. Dyspnea, No Edema, No Lt Headedness, No Other Gastrointestinal: No Nausea, No Vomiting, No Abdominal Pain, No Diarrhea, No Constipation, No Melena, No Hematochezia, No Other Genitourinary: No Dysuria, No Frequency, No Incontinence, No Hematuria, No Retention, No Discharge, No Urgency, No Pain, No Flank Pain, No Other, No , No , No , No , No , No , No Musculoskeletal: No Gait Disturbance, No Joint Pain, No Joint Stiffness, No Joint Swelling, No Muscle Pain, No Muscular Weakness, No Pain In:, No Swelling In:, No Other Neurological: No Behavorial Changes, No Bowel/Bladder ControlChng, No Confusion, No Dizziness, No Gait Disturbance, No Headaches, No Impaired Coord/balance, No Memory Loss, No Numbness/Tingling, No Seizures, No Speech Problems, No Tremors, No Visual Changes, No Weakness, No Other Skin: No Dry Skin, No Eczema, No Hair Changes, No Lumps, No Mole Changes, No Mottling, No Nail Changes, No Pruritus, No Rash, No Skin Lesion Changes, No Other, No Acne Physical Exam General: Alert, Oriented X3, Cooperative, No acute distress HEENT: Atraumatic, PERRLA, EOMI, Mucous membr. moist/pink Lungs: Clear to auscultation, Normal air movement Heart: S1S2, RRR, no gallops, no murmurs Abdomen: Normal bowel sounds, Soft, No tenderness, No hepatosplenomegaly, No masses Rectal Exam: not examined Extremities: No clubbing, No cyanosis, No edema, Normal pulses, No tenderness/swelling Skin: No rashes, No breakdown, No significant lesion Neuro: Normal gait, Normal speech, Strength at 5/5 X4 ext, Normal tone, Sensation intact, Cranial nerves 3-12 NL, Reflexes 2+ Psych/Mental Status: Mental status NL, Mood NL Images Images CXR - PA and lateral digital radiographs of the chest were obtained. Comparison is made to a CT scan of the chest dated 12/15/2017. The cardiac silhouette is normal in size. The thoracic aorta is mildly tortuous. Elevation of the left hemidiaphragm is again seen. Subsegmental atelectasis is seen within the lingula of the left upper lobe, unchanged. No acute pulmonary infiltrate is noted. No pneumothorax or pleural effusion is seen. Degenerative changes are seen involving the thoracic spine. IMPRESSION: No acute abnormality is seen. VTE Prophylaxis Ordered VTE Prophylaxis Devices: Yes VTE Pharmacological Prophylaxi: Yes Assessment/Plan Assessment/Plan A/P: Chest pain - with elevated troponin 0.2, given ASA and NTG, transferred for cl oser monitoring. Trend troponins, will initiate heparin if they continue to elevate. Shortness of breath - with elevated right hemidiaphragm, stopped smoking in the 1970s, he will likely be getting spirometry in the future. I have advised him weight loss. He is already on victoza Hypomagnesemia - 1.[address] [facility], will replace IV. DM - on good medication regimen outpatient. He is on metformin, victoza, has had invokana recommended to him as well. On statin and ARB. Basal bolus plus insulin while inpatient HTN - cont home meds KATERYNA on CPAP - will cont home device h/o RLE DVT - wears compression hose. His d dimer is only slightly elevated, actually translates to normal for age. FEN - Cardiac diet, NPO after midnight PPX - lovenox FULL CODE Dispo - inpatient for likely ACS DONA SHEPPARD MD Jul 10, 2019 18:05
[2019-07-10] MEDS ORDERED: DEXTROSE 50% 25 GM / 50ML DISP.SYRIN. IV PRN (18:15)
[2019-07-10] MEDS ORDERED: ONDANSETRON PF 4 MG/2 ML VIAL. IV PRN (18:15)
[2019-07-10] MEDS ORDERED: ACETAMINOPHEN 325 MG TABLET. PO PRN (18:15)
[2019-07-10] MEDS ORDERED: INSU100V13 SQ (18:18)
[2019-07-10] MEDS ORDERED: VITA-8 PO (18:18)
[2019-07-10] MEDS ORDERED: OMEG1CAP6 PO (18:18)
[2019-07-10] MEDS ORDERED: ASPI81TA50 PO (18:27)
[2019-07-10 19:30] VITALS: BP 152/70
[2019-07-10] MEDS ORDERED: INSULIN GLARGINE SYRINGE. SQ SCH (21:00)
[2019-07-10] MEDS: INSULIN LISPRO 300 UNITS/3 ML VIAL. SQ SCH ×2 (21:00→22:00)
[2019-07-10] MEDS ORDERED: NON FORMULARY ITEM (Insulin Detemir (Levemir) 20 UNIT) SQ SCH (21:15)
[2019-07-10] MEDS: ASPIRIN ENTERIC COATED 81 MG TABLET.DR. PO SCH (21:30)
[2019-07-10] MEDS: INSULIN GLARGINE SYRINGE. SQ SCH (21:54)
[2019-07-10] MEDS ORDERED: MORPHINE SULFATE 2 MG/ML VIAL. IV PRN (22:00)
[2019-07-10] MEDS ORDERED: NITROGLYCERIN SUBLINGUAL 0.4 MG BOTTLE OF 25. SL PRN (22:00)
[2019-07-10] MEDS ORDERED: ENOXAPARIN 40 MG/0.4 ML SYRINGE. SQ SCH (22:00)
[2019-07-10] MEDS ORDERED: MAGNESIUM SULFATE 4GM 100 ML IV ONE (22:15)
[2019-07-10 23:00] VITALS: BP 165/71
[2019-07-11] VITALS (7 sets, daily range): BP systolic 109–170; BP diastolic 46–103
[2019-07-11] MEDS ORDERED: HEPARIN 25,000UTS/500ML PREMIX 500 ML IV PRN ×2 (02:00→07:00)
[2019-07-11 06:20] LABS: BASO # 0.1 x10^3/uL (0.0-0.2); BASO % 1 % (0-3); EOS # 0.2 x10^3/uL (0.0-0.7); EOS % 3 % (0-3); HEMATOCRIT 37.3 % (39.0-53.0); HEMOGLOBIN 12.5 g/dL (13.0-17.5); LYMPH % 30 % (24-48); MEAN CORPUSCULAR HEMOGLOBIN 31 pg (25-35); MEAN CORPUSCULAR HGB CONC 34 g/dL (31-37); MEAN CORPUSCULAR VOLUME 93 fL (79-100); MONO # 0.6 x10^3/uL (0.0-1.1); MONO % 10 % (0-9); NEUT # 3.7 x10^3/uL (1.8-7.7); NEUT % 56 % (31-73); PLATELET COUNT 207 x10^3/uL (140-400); RED BLOOD COUNT 4.01 x10^6/uL (4.30-5.70); RED CELL DISTRIBUTION WIDTH 13.5 % (11.5-14.5); WHITE BLOOD COUNT 6.6 x10^3/uL (4.0-11.0)
[2019-07-11 06:39] LABS: CALCIUM 8.8 mg/dL (8.5-10.1); CREATININE 0.8 mg/dL (0.7-1.3); POTASSIUM 3.7 mmol/L (3.5-5.1)
[2019-07-11] MEDS ORDERED: HEPARIN for IV BOLUS 10,000 UNIT/10 ML VIAL. IV PRN ×2 (07:00)
[2019-07-11] MEDS ORDERED: HEPARIN for IV BOLUS 10,000 UNIT/10 ML VIAL. IV ONE (07:00)
[2019-07-11] MEDS: INSULIN LISPRO 300 UNITS/3 ML VIAL. SQ SCH ×7 (07:30→21:00)
[2019-07-11] MEDS: OMEGA-3 FATTY ACIDS/FISH OIL 1,000 MG CAPSULE. PO SCH ×2 (07:30→14:26)
[2019-07-11] MEDS ORDERED: INSULIN LISPRO 300 UNITS/3 ML VIAL. SQ SCH (07:30)
[2019-07-11 08:36] LABS: CHOLESTEROL/HDL RATIO 3.7
[2019-07-11] MEDS ORDERED: NON FORMULARY ITEM (Gluc/Chon-Msm#2/C/D3/Mang/Born (Glucosamin-Chondroitin-Msm Tab) 1 EACH PO SCH (09:00)
[2019-07-11] MEDS ORDERED: NON FORMULARY ITEM (Losartan/Hydrochlorothiazide (Losartan-Hctz 100-25 Mg Tab) 1 EACH) PO SCH (09:00)
[2019-07-11] MEDS ORDERED: NON FORMULARY ITEM (Cinnamon Bark (Cinnamon) 500 MG) PO SCH (09:00)
[2019-07-11] MEDS: hydroCHLOROthiazide 25 MG TABLET PO SCH (09:02)
[2019-07-11] MEDS: LOSARTAN POTASSIUM 50 MG TABLET. PO SCH (09:04)
--- NOTE | 2019-07-11 09:59 | PDOC2 ---
GIDEON ECHAVARRIA JOB ANALYST 07/11/19 0959: CARDIAC CONSULT DATE OF CONSULT Date of Consult DATE: 07/11/19 TIME: 09:54 REASON FOR CONSULT Reason for Consult: Chest pain Elevated troponin REFERRING PHYSICIAN Referring Physician: Dr. Mccormick SOURCE Source: Chart review, Patient HISTORY OF PRESENT ILLNESS HISTORY OF PRESENT ILLNESS This is a 73 yo male, who initially presented to [facility] secondary to chest pain and shortness of breath. Troponin was noted to be elevated and patient was transferred to [facility] for further evaluation and treatment. Patient reports intermittent chest tightness associated with shortness of breath for the last year or so. Has progressively worsened. Has seen primary care physician and felt as this was possibly related to asthma or COPD. Was given inhaler without any significant improvement. Was referred to senior policy advisor and had appointment scheduled today. Normally, chest tightness/shortness of breath resolves without intervention. 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 Was short of breath and diaphoretic. Symptoms did not resolve as they usually do so encouraged him to go to the ED to be evaluated. Patient also reports exertional dyspnea over the last 2 years. No further chest pain overnight. PAST MEDICAL HISTORY Cardiovascular: HTN Pulmonary: Asthma, Other (KATERYNA) Heme/Onc: Other (DVT) Musculoskeletal: Osteoarthritis Endocrine: Diabetes PAST SURGICAL HISTORY Past Surgical History: Total knee replacement (left ), Tonsillectomy FAMILY HISTORY Family History: Diabetes, Hypertension SOCIAL HISTORY Smoke: Quit ( ) ALCOHOL: none Drugs: None Lives: with Family CURRENT MEDICATIONS CURRENT MEDICATIONS Current Medications Medications (Trade) Dose Ordered Sig/Mary Route PRN Reason Start Time Stop Time Status Last Admin Dose Admin Insulin Glargine (Lantus Syringe) 20 unit QHS SQ 07/10/19 21:45 07/10/19 21:54 Losartan Potassium (Cozaar) 100 mg DAILY PO 07/11/19 09:00 07/11/19 09:04 Hydrochlorothiazide (Hydrodiuril) 25 mg DAILY PO 07/11/19 09:00 07/11/19 09:02 Insulin Human Lispro (HumaLOG) 12 units TIDAC SQ 07/10/19 22:00 07/10/19 22:00 Magnesium Sulfate 100 ml @ 25 mls/hr 1X ONCE IV 07/10/19 22:15 07/11/19 02:14 DC 07/10/19 22:16 Enoxaparin Sodium (Lovenox 40mg Syringe) 40 mg Q24H SQ 07/10/19 22:00 07/11/19 02:05 DC 07/10/19 22:17 Heparin Sodium/ Dextrose 500 ml @ 0 mls/hr CONT PRN IV SEE I/O RECORD 07/11/19 07:00 07/11/19 06:54 Heparin Sodium (Porcine) (Heparin Sodium) 4,000 unit 1X ONCE IV 07/11/19 07:00 07/11/19 07:01 DC 07/11/19 06:49 ALLERGIES ALLERGIES: Coded Allergies: Diwcxnt-Ycz-Ffm Reductase Inhibitor (Verified Adverse Reaction, Intermediate, 01/28/19) UNSTEADY/BLURRED VISION rosiglitazone (Verified Adverse Reaction, Intermediate, 01/28/19) WEIGHT GAIN ROS Review of System 14 point ROS conducted with pertinent positives noted above in HPI PHYSICAL EXAM General: Alert, Oriented X3, Cooperative, No acute distress HEENT: Atraumatic, Mucous membr. moist/pink Lungs: Clear to auscultation, Normal air movement Heart: Regular rate, Normal S1, Normal S2, No murmurs Abdomen: Soft, No tenderness, Other (obese ) Extremities: No edema, Normal pulses Skin: No significant lesion Neuro: Normal speech, Sensation intact Psych/Mental Status: Mental status NL, Mood NL MUSCULOSKELETAL: Osteoarthritic changes both hands VITALS/I&O VITALS/I&O: Vital Signs Date Time Temp Pulse Resp B/P (MAP) Pulse Ox O2 Delivery O2 Flow Rate FiO2 07/11/19 09:04 67 128/62 07/11/19 07:00 97.5 20 93 BiPAP/CPAP 97.5 I & O 07/10/19 07/10/19 07/11/19 15:00 23:00 07:00 Intake Total 240 ml Balance 240 ml LABS Lab: Laboratory Tests Test 07/10/19 17:25 07/10/19 20:52 07/11/19 00:15 07/11/19 06:00 Glucose (Fingerstick) 98 mg/dL (70-99) 188 mg/dL (70-99) H Troponin I Quantitative 12.301 ng/mL (0.000-0.055) 8.128 ng/mL (0.000-0.055) White Blood Count 6.6 x10^3/uL (4.0-11.0) Red Blood Count 4.01 x10^6/uL (4.30-5.70) L Hemoglobin 12.5 g/dL (13.0-17.5) L Hematocrit 37.3 % (39.0-53.0) L Mean Corpuscular Volume 93 fL (79-100) Mean Corpuscular Hemoglobin 31 pg (25-35) Mean Corpuscular Hemoglobin Concent 34 g/dL (31-37) Red Cell Distribution Width 13.5 % (11.5-14.5) Platelet Count 207 x10^3/uL (140-400) Neutrophils (%) (Auto) 56 % (31-73) Lymphocytes (%) (Auto) 30 % (24-48) Monocytes (%) (Auto) 10 % (0-9) H Eosinophils (%) (Auto) 3 % (0-3) Basophils (%) (Auto) 1 % (0-3) Neutrophils # (Auto) 3.7 x10^3/uL (1.8-7.7) Lymphocytes # (Auto) 2.0 x10^3/uL (1.0-4.8) Monocytes # (Auto) 0.6 x10^3/uL (0.0-1.1) Eosinophils # (Auto) 0.2 x10^3/uL (0.0-0.7) Basophils # (Auto) 0.1 x10^3/uL (0.0-0.2) Sodium Level 141 mmol/L (136-145) Potassium Level 3.7 mmol/L (3.5-5.1) Chloride Level 103 mmol/L (98-107) Carbon Dioxide Level 29 mmol/L (21-32) Anion Gap 9 (6-14) Blood Urea Nitrogen 15 mg/dL (8-26) Creatinine 0.8 mg/dL (0.7-1.3) Estimated GFR (Cockcroft-Gault) 95.0 Glucose Level 104 mg/dL (70-99) H Calcium Level 8.8 mg/dL (8.5-10.1) Triglycerides Level 103 mg/dL (0-150) Cholesterol Level 179 mg/dL (0-200) LDL Cholesterol, Calculated 109 mg/dL (0-100) H VLDL Cholesterol, Calculated 21 mg/dL (0-40) Non-HDL Cholesterol Calculated 130 mg/dL (0-129) H HDL Cholesterol 49 mg/dL (40-60) Cholesterol/HDL Ratio 3.7 Test 07/11/19 07:08 Glucose (Fingerstick) 122 mg/dL (70-99) H Laboratory Tests 07/11/19 06:00 Laboratory Tests 07/11/19 06:00 ASSESSMENT/PLAN ASSESSMENT/PLAN 1. Chest pain, typical features. 2. NSTEMI; peak 12 3. Hypertension; controlled 4. Hyperlipidemia; intolerant to statin 5. Diabetes, II 6. KATERYNA with CPAP Recommendations EKG Echo to assess LV systolic function ASA, BB Continue heparin gtt Recommend LHC given symptomatology and risk factors in the setting of NSTEMI. R/b/a discussed and patient is agreeable. Will proceed with this afternoon JULIANA MELGAR MD 07/12/19 0934: CARDIAC CONSULT ASSESSMENT/PLAN ASSESSMENT/PLAN Late entry for 07/11/2019 Pt. seen and examined. Agree with above CARE DIRECTOR note. Patient underwent cath and PCI to the LAD. GIDEON ECHAVARRIA APRN Jul 11, 2019 09:59 JULIANA MELGAR MD Jul 12, 2019 09:34
[2019-07-11] MEDS: LIRAGLUTIDE (VICTOZA) SQ SCH (10:00)
--- NOTE | 2019-07-11 10:43 | EKG ---
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
--- NOTE | 2019-07-11 11:57 | CONS ---
DATE OF CONSULTATION: PULMONARY CONSULTATION ATTENDING PHYSICIAN: Dr. Mccormick. REASON FOR CONSULTATION: Chest pain. HISTORY OF PRESENT ILLNESS: The patient is a 73-year-old male who has history of sleep apnea, on CPAP; history of right lower extremity DVT in 2012, was treated with warfarin. He came to the hospital with heaviness on the left upper chest. He states it has been periodically. He noticed that this happened in wintertime as well with exertion. He does not have any wheezing. He quit tobacco in the 70s. The patient has no cough. No fever, no chills. He does have chronic lower extremity edema. His chest x-ray was reviewed by me and it shows a hazy density in the left perihilar area, which could be a vascular shadow, but needs further evaluation. PAST MEDICAL HISTORY: History of hypertension, hyperlipidemia, history of KATERYNA on CPAP. History of right lower extremity DVT in 2013 treated with warfarin and is off anticoagulation. PAST SURGICAL HISTORY: Total knee replacement and tonsillectomy. FAMILY HISTORY: Cancer. Mother with cervical cancer. SOCIAL HISTORY: Quit tobacco in the 70s. REVIEW OF SYSTEMS: Twelve-point system obtained. Pertinent positives discussed in my history of present illness, otherwise noncontributory. All systems that were negative were reviewed as well. ALLERGIES: STATINS. MEDICATIONS: Reviewed as listed in the MRAD. Including heparin. PHYSICAL EXAMINATION: VITAL SIGNS: Stable. Pulse ox is 93% on room air. NECK: Supple. LUNGS: Clear. CARDIOVASCULAR: With a regular rate. ABDOMEN: Soft, obese. EXTREMITIES: With 1+ pitting edema. LABORATORY DATA: Labs reviewed. His troponin is 12.3. BUN and creatinine normal. White cell count 6.6. IMPRESSION: 1. Left-sided chest pain, likely related to non-ST myocardial infarction with markedly elevated troponin level of 12. He has been planned for cardiac catheterization today and we will await further findings. 2. Unlikely thromboembolic disease. If the cardiac catheterization is negative, then we will do a V/Q scan. 3. Hazy density in the left perihilar area could be a vascular shadow, but we will obtain a noncontrast CT chest for further evaluation. 4. History of obstructive sleep apnea with good compliance with CPAP. RECOMMENDATIONS: 1. Discussed with RN. The patient is scheduled to have cardiac catheterization for further evaluation of his chest pain and markedly increased troponin level. 2. Await cardiac catheterization findings. 3. Noncontrast CT chest to rule out any abnormal density in the left hilar area. 4. Continue CPAP as prescribed. 5. If the cardiac catheterization is negative, then we will do V/Q scan. 6. Discussed with RN and the patient's and will follow along with you. SOHA HAILE MD DR: KAILA/tiago JOB#: [id number] / [id number]
[2019-07-11] MEDS ORDERED: ANTI-COAG MONITOR BY PHARMACY. MC PRN (12:45)
[2019-07-11] MEDS ORDERED: VERAPAMIL 5 MG/2 ML VIAL. ONE (12:53)
[2019-07-11] MEDS ORDERED: HEPARIN for IV BOLUS 10,000 UNIT/10 ML VIAL. ONE (12:53)
[2019-07-11] MEDS ORDERED: MIDAZOLAM HCL/PF 2 MG/2 ML VIAL. ONE (12:53)
[2019-07-11] MEDS ORDERED: fentaNYL PF VIAL 100 MCG/2 ML VIAL ONE (12:53)
[2019-07-11] MEDS ORDERED: NITROGLYCERIN 200 MCG/2 ML SYRINGE FOR CATH/VASC LAB. ONE (12:54)
[2019-07-11] MEDS ORDERED: LIDOCAINE 1% PF 2 ML VIAL. ONE (13:03)
[2019-07-11] MEDS ORDERED: NITROGLYCERIN 200 MCG/2 ML SYRINGE FOR CATH/VASC LAB. IART ONE (13:15)
[2019-07-11] MEDS ORDERED: fentaNYL PF VIAL 100 MCG/2 ML VIAL IV ONE (13:15)
[2019-07-11] MEDS ORDERED: IOHEXOL 300 MG/ML 100ML VIAL. IART ONE (13:15)
[2019-07-11] MEDS ORDERED: LIDOCAINE 1% PF 2 ML VIAL. INJ ONE (13:15)
[2019-07-11] MEDS ORDERED: HEPARIN for IV BOLUS 10,000 UNIT/10 ML VIAL. IART ONE (13:15)
[2019-07-11] MEDS ORDERED: VERAPAMIL 5 MG/2 ML VIAL. IART ONE (13:15)
[2019-07-11] MEDS ORDERED: MIDAZOLAM HCL/PF 2 MG/2 ML VIAL. IV ONE (13:15)
[2019-07-11] MEDS ORDERED: BIVALIRUDIN 250 MG VIAL. IV ONE ×2 (13:19→13:45)
--- NOTE | 2019-07-11 13:30 | NUR ---
SS following for discharge planning. SS reviewed pt chart. Pt is from home with spouse and is currently on room air. Pt is receiving heart cath today. SS will continue to follow for discharge planning.
[2019-07-11] MEDS ORDERED: ASPIRIN 325 MG TABLET ONE (13:43)
[2019-07-11] MEDS ORDERED: PRASUGREL 10 MG TABLET. ONE (13:43)
[2019-07-11] MEDS ORDERED: ASPIRIN 325 MG TABLET PO ONE (13:45)
[2019-07-11] MEDS ORDERED: PRASUGREL 10 MG TABLET. PO ONE (13:45)
--- NOTE | 2019-07-11 14:14 | CARD ---
MR#: [id number] Date of Study: 07/11/2019 Ordering Physician: GIDEON ECHAVARRIA, Referring Physician: GIDEON ECHAVARRIA, Tech: RT Damien (R) VICKI APPROVED REPORT Technologist: RT Damien (R) VICKI Nurse: Gabriela Ospina R.N. Procedure(s) performed: FLUORO TIME: 9.7 MIN DOSE: [id number] Moderate Sedation Time: 47 MIN Contrast Total: 170ml LHC, Coronary angiography PCI of the LAD HISTORY The patient is a 73 year-old male with a history of : hypertension, dyslipidemia. INDICATION The indication(s) include : non-STEMI . CSHA Clinical Frailty Scale CSHA Clinical Frailty Scale: Moderately Frail Heart Failure Heart Failure: No PROCEDURE NARRATIVE INFORMED CONSENT: After explaining the risks and benefits of the procedure and alternatives, informed consent was obtained. The patient was brought electively to the cardiac catheterization lab. A timeout was performed confi rming the patient's name, date of , procedure, and site of procedure. All necessary personnel w ere wearing the appropriate protective equipment and radiation monitor devices. (See nursing notes for medications administered). ACCESS: The right wrist was sterilely prepped and draped in the usual fashion. The right wrist was infiltrat ed with 1 mL of 2% lidocaine for subcutaneous anesthesia. A 6 [place] Terumo glide sheath was inserte d into the right radial artery without difficulty. CORONARY ANGIOGRAPHY: Right and left coronary angiography was performed using a 6Fr TIG 4.0 catheter. Left ventricular en d diastolic pressure was obtained with a TIG catheter and pullback was performed after left ventricul ography. All catheter exchanges and advancements were performed over a guidewire. FINDINGS: HEMODYNAMICS: LVEDP 10 mm Hg No gradient on LV to aortic pullback. AO: 128/78 LEFT VENTRICULOGRAM: Deferred. CORONARY ANGIOGRAPHY: LM is a large caliber vessel with normal angiographic appearance. LAD is a large caliber vessel with a proximal 90% stenosis. The remainder of the vessel had mild diff use irregularities of up to 50% D1 is a small caliber vessel with mild diffuse irregularities. LCx is a moderate caliber co-dominant vessel with mild luminal irregularities. OM1 is a moderate caliber vessel with mild luminal irregularities of up to 30%. RCA is a moderate caliber co-dominant vessel with an ostial 50% stenosis and a diffuse 30% irregulari ties. RPDA is a small caliber vessel with mild luminal irregularities. INTERVENTIONAL TECHNIQUE: Bivalirudin was used for anticoagulation. Due to NSTEMI and proxima 90% LAD lesion, an intervention w as performed. The lesion was crossed with a Prowater wire using a EBU 3.5 guide catheter. The lesion was then angioplastied with a Trek 3.0/12 mm balloon and then stented with a Resolute 4.0/18 mm TIFFANY a t 12 antonella. Final angiography demonstrated excellent stent expansion with BRIAN 3 flow in the vessel. CLOSURE: At case completion the right radial sheath was removed and a Terumo radial band was applied with 13 m l of air. COMPLICATIONS: The patient tolerated the procedure well and there were no immediate complications. LOLITA Flow LOLITA Flow (Pre-Intervention): LOLITA-3 LOLITA Flow (Post-Intervention): LOLITA-3 Conclusion 1. Normal left sided filling pressures. 2. Three vessel coronary disease with culprit in the LAD 3. Successful insertion of a Resolute [place] 4.0/18 TIFFANY in the proximal LAD. Recommendations ASA 81mg daily Prasugrel 10mg daily Patient has previous statin intolerance Agggressive risk factor modification Signed by : Adán Campos, Electronically Approved : 07/11/2019 14:13:42
--- NOTE | 2019-07-11 14:16 | PDOC ---
PROGRESS NOTES Chief Complaint Chief Complaint NSTEMI, Chest pain - unstable angina Shortness of breath - Hypomagnesemia - DM 2 - o HTN - cont home meds KATERYNA on CPAP - h/o RLE DVT - wears compression hose. His d dimer is only slightly elevated, actually translates to normal for age. History of Present Illness History of Present Illness cardiac cath today cont tele bp control CV following plan DC in AM Vitals Vitals Vital Signs Date Time Temp Pulse Resp B/P (MAP) Pulse Ox O2 Delivery O2 Flow Rate FiO2 07/11/19 13:50 65 15 95 Nasal Cannula 2.0 07/11/19 11:00 97.5 123/58 (79) 97.5 Physical Exam General: Alert, Oriented X3, Cooperative, No acute distress Heart: Regular rate, Normal S1, Normal S2, No murmurs Abdomen: Soft, No tenderness, Other (obese ) Extremities: No edema, Normal pulses Skin: No significant lesion Labs LABS Laboratory Tests Test 07/10/19 17:25 07/10/19 20:52 07/11/19 00:15 07/11/19 06:00 Glucose (Fingerstick) 98 mg/dL (70-99) 188 mg/dL (70-99) Troponin I Quantitative 12.301 ng/mL (0.000-0.055) 8.128 ng/mL (0.000-0.055) White Blood Count 6.6 x10^3/uL (4.0-11.0) Red Blood Count 4.01 x10^6/uL (4.30-5.70) Hemoglobin 12.5 g/dL (13.0-17.5) Hematocrit 37.3 % (39.0-53.0) Mean Corpuscular Volume 93 fL (79-100) Mean Corpuscular Hemoglobin 31 pg (25-35) Mean Corpuscular Hemoglobin Concent 34 g/dL (31-37) Red Cell Distribution Width 13.5 % (11.5-14.5) Platelet Count 207 x10^3/uL (140-400) Neutrophils (%) (Auto) 56 % (31-73) Lymphocytes (%) (Auto) 30 % (24-48) Monocytes (%) (Auto) 10 % (0-9) Eosinophils (%) (Auto) 3 % (0-3) Basophils (%) (Auto) 1 % (0-3) Neutrophils # (Auto) 3.7 x10^3/uL (1.8-7.7) Lymphocytes # (Auto) 2.0 x10^3/uL (1.0-4.8) Monocytes # (Auto) 0.6 x10^3/uL (0.0-1.1) Eosinophils # (Auto) 0.2 x10^3/uL (0.0-0.7) Basophils # (Auto) 0.1 x10^3/uL (0.0-0.2) Sodium Level 141 mmol/L (136-145) Potassium Level 3.7 mmol/L (3.5-5.1) Chloride Level 103 mmol/L (98-107) Carbon Dioxide Level 29 mmol/L (21-32) Anion Gap 9 (6-14) Blood Urea Nitrogen 15 mg/dL (8-26) Creatinine 0.8 mg/dL (0.7-1.3) Estimated GFR (Cockcroft-Gault) 95.0 Glucose Level 104 mg/dL (70-99) Calcium Level 8.8 mg/dL (8.5-10.1) Triglycerides Level 103 mg/dL (0-150) Cholesterol Level 179 mg/dL (0-200) LDL Cholesterol, Calculated 109 mg/dL (0-100) VLDL Cholesterol, Calculated 21 mg/dL (0-40) Non-HDL Cholesterol Calculated 130 mg/dL (0-129) HDL Cholesterol 49 mg/dL (40-60) Cholesterol/HDL Ratio 3.7 Test 07/11/19 07:08 07/11/19 11:48 Glucose (Fingerstick) 122 mg/dL (70-99) 131 mg/dL (70-99) Comment Review of Relevant I have reviewed the following items rachel (where applicable) has been applied. Labs Laboratory Tests Test 07/10/19 17:25 07/10/19 20:52 07/11/19 00:15 07/11/19 06:00 Glucose (Fingerstick) 98 mg/dL (70-99) 188 mg/dL (70-99) Troponin I Quantitative 12.301 ng/mL (0.000-0.055) 8.128 ng/mL (0.000-0.055) White Blood Count 6.6 x10^3/uL (4.0-11.0) Red Blood Count 4.01 x10^6/uL (4.30-5.70) Hemoglobin 12.5 g/dL (13.0-17.5) Hematocrit 37.3 % (39.0-53.0) Mean Corpuscular Volume 93 fL (79-100) Mean Corpuscular Hemoglobin 31 pg (25-35) Mean Corpuscular Hemoglobin Concent 34 g/dL (31-37) Red Cell Distribution Width 13.5 % (11.5-14.5) Platelet Count 207 x10^3/uL (140-400) Neutrophils (%) (Auto) 56 % (31-73) Lymphocytes (%) (Auto) 30 % (24-48) Monocytes (%) (Auto) 10 % (0-9) Eosinophils (%) (Auto) 3 % (0-3) Basophils (%) (Auto) 1 % (0-3) Neutrophils # (Auto) 3.7 x10^3/uL (1.8-7.7) Lymphocytes # (Auto) 2.0 x10^3/uL (1.0-4.8) Monocytes # (Auto) 0.6 x10^3/uL (0.0-1.1) Eosinophils # (Auto) 0.2 x10^3/uL (0.0-0.7) Basophils # (Auto) 0.1 x10^3/uL (0.0-0.2) Sodium Level 141 mmol/L (136-145) Potassium Level 3.7 mmol/L (3.5-5.1) Chloride Level 103 mmol/L (98-107) Carbon Dioxide Level 29 mmol/L (21-32) Anion Gap 9 (6-14) Blood Urea Nitrogen 15 mg/dL (8-26) Creatinine 0.8 mg/dL (0.7-1.3) Estimated GFR (Cockcroft-Gault) 95.0 Glucose Level 104 mg/dL (70-99) Calcium Level 8.8 mg/dL (8.5-10.1) Triglycerides Level 103 mg/dL (0-150) Cholesterol Level 179 mg/dL (0-200) LDL Cholesterol, Calculated 109 mg/dL (0-100) VLDL Cholesterol, Calculated 21 mg/dL (0-40) Non-HDL Cholesterol Calculated 130 mg/dL (0-129) HDL Cholesterol 49 mg/dL (40-60) Cholesterol/HDL Ratio 3.7 Test 07/11/19 07:08 07/11/19 11:48 Glucose (Fingerstick) 122 mg/dL (70-99) 131 mg/dL (70-99) Laboratory Tests Test 07/10/19 17:25 07/10/19 20:52 07/11/19 00:15 07/11/19 06:00 Glucose (Fingerstick) 98 mg/dL (70-99) 188 mg/dL (70-99) Troponin I Quantitative 12.301 ng/mL (0.000-0.055) 8.128 ng/mL (0.000-0.055) White Blood Count 6.6 x10^3/uL (4.0-11.0) Red Blood Count 4.01 x10^6/uL (4.30-5.70) Hemoglobin 12.5 g/dL (13.0-17.5) Hematocrit 37.3 % (39.0-53.0) Mean Corpuscular Volume 93 fL (79-100) Mean Corpuscular Hemoglobin 31 pg (25-35) Mean Corpuscular Hemoglobin Concent 34 g/dL (31-37) Red Cell Distribution Width 13.5 % (11.5-14.5) Platelet Count 207 x10^3/uL (140-400) Neutrophils (%) (Auto) 56 % (31-73) Lymphocytes (%) (Auto) 30 % (24-48) Monocytes (%) (Auto) 10 % (0-9) Eosinophils (%) (Auto) 3 % (0-3) Basophils (%) (Auto) 1 % (0-3) Neutrophils # (Auto) 3.7 x10^3/uL (1.8-7.7) Lymphocytes # (Auto) 2.0 x10^3/uL (1.0-4.8) Monocytes # (Auto) 0.6 x10^3/uL (0.0-1.1) Eosinophils # (Auto) 0.2 x10^3/uL (0.0-0.7) Basophils # (Auto) 0.1 x10^3/uL (0.0-0.2) Sodium Level 141 mmol/L (136-145) Potassium Level 3.7 mmol/L (3.5-5.1) Chloride Level 103 mmol/L (98-107) Carbon Dioxide Level 29 mmol/L (21-32) Anion Gap 9 (6-14) Blood Urea Nitrogen 15 mg/dL (8-26) Creatinine 0.8 mg/dL (0.7-1.3) Estimated GFR (Cockcroft-Gault) 95.0 Glucose Level 104 mg/dL (70-99) Calcium Level 8.8 mg/dL (8.5-10.1) Triglycerides Level 103 mg/dL (0-150) Cholesterol Level 179 mg/dL (0-200) LDL Cholesterol, Calculated 109 mg/dL (0-100) VLDL Cholesterol, Calculated 21 mg/dL (0-40) Non-HDL Cholesterol Calculated 130 mg/dL (0-129) HDL Cholesterol 49 mg/dL (40-60) Cholesterol/HDL Ratio 3.7 Test 07/11/19 07:08 07/11/19 11:48 Glucose (Fingerstick) 122 mg/dL (70-99) 131 mg/dL (70-99) Medications Current Medications Ondansetron HCl (Zofran) 4 mg PRN Q4HRS PRN IV NAUSEA/VOMITING; Start 07/10/19 at 18:15 Acetaminophen (Tylenol) 650 mg PRN Q4HRS PRN PO TEMP OVER 100.4F OR MILD PAIN; Start 07/10/19 at 18:15 Insulin Glargine (Lantus Syringe) 8 unit QHS SQ ; Start 07/10/19 at 21:00; Stop 07/10/19 at 21:36; Status DC Insulin Human Lispro (HumaLOG) 0-7 UNITS TIDACHC SQ ; Start 07/10/19 at 21:00 Dextrose (Dextrose 50%-Water Syringe) 12.5 gm PRN Q15MIN PRN IV SEE COMMENTS; Start 07/10/19 at 18:15 Aspirin (Ecotrin) 81 mg HS PO ; Start 07/10/19 at 21:30 Fish Oil (Fish Oil) 1,000 mg BIDAC PO ; Start 07/11/19 at 07:30 Non-Formulary Medication (Cinnamon Bark (Cinnamon)) 500 mg BID PO ; Start 07/11/19 at 09:00; Status UNV Non-Formulary Medication (Gluc/Addison-Msm#2/ C/D3/Yong/Born (Vmmguvrxrq-Caffyjlblsj-Csf Tab)) 1 each TID PO ; Start 07/11/19 at 09:00; Status UNV Insulin Human Lispro (HumaLOG) 12 units TIDAC SQ ; Start 07/11/19 at 07:30; Stop 07/10/19 at 21:51; Status DC Non-Formulary Medication (Insulin Detemir (Levemir)) 20 unit HS SQ ; Start 07/10/19 at 21:15; Status UNV Non-Formulary Medication (Losartan/ Hydrochlorothiazide (Losartan-Hctz 100-25 Mg Tab)) 1 each DAILY PO ; Start 07/11/19 at 09:00; Status UNV Multivitamins (Thera M Plus) 1 tab DAILY PO ; Start 07/11/19 at 09:00 Vitamin E (Vitamin E.) 400 unit DAILY PO ; Start 07/11/19 at 09:00 Insulin Glargine (Lantus Syringe) 20 unit QHS SQ Last administered on 07/10/19at 21:54; Start 07/10/19 at 21:45 Losartan Potassium (Cozaar) 100 mg DAILY PO Last administered on 07/11/19at 09:04; Start 07/11/19 at 09:00 Hydrochlorothiazide (Hydrodiuril) 25 mg DAILY PO Last administered on 07/11/19at 09:02; Start 07/11/19 at 09:00 Insulin Human Lispro (HumaLOG) 12 units TIDAC SQ Last administered on 07/10/19at 22:00; Start 07/10/19 at 22:00 Magnesium Sulfate 100 ml @ 25 mls/hr 1X ONCE IV Last administered on 07/10/19at 22:16; Start 07/10/19 at 22:15; Stop 07/11/19 at 02:14; Status DC Enoxaparin Sodium (Lovenox 40mg Syringe) 40 mg Q24H SQ Last administered on 07/10/19at 22:17; Start 07/10/19 at 22:00; Stop 07/11/19 at 02:05; Status DC Nitroglycerin (Nitrostat) 0.4 mg PRN Q5MIN PRN SL CHEST PAIN; Start 07/10/19 at 22:00 Morphine Sulfate (Morphine Sulfate) 2 mg PRN Q2HR PRN IV PAIN; Start 07/10/19 at 22:00 Heparin Sodium/ Dextrose 500 ml @ 0 mls/hr CONT PRN IV SEE I/O RECORD Last administered on 07/11/19at 06:54; Start 07/11/19 at 07:00 Heparin Sodium (Porcine) (Heparin Sodium) 3,800 unit PRN Q6HRS PRN IV FOR UFH LEVEL LESS THAN 0.2; Start 07/11/19 at 07:00; Stop 07/11/19 at 13:30; Status DC Heparin Sodium/ Dextrose 500 ml @ 0 mls/hr CONT PRN IV SEE I/O RECORD; Start 07/11/19 at 02:00; Status UNV Heparin Sodium (Porcine) (Heparin Sodium) 3,800 unit PRN Q6HRS PRN IV FOR UFH LEVEL LESS THAN 0.2; Start 07/11/19 at 07:00 Heparin Sodium (Porcine) (Heparin Sodium) 4,000 unit 1X ONCE IV Last administe red on 07/11/19at 06:49; Start 07/11/19 at 07:00; Stop 07/11/19 at 07:01; Status DC Non-Formulary Medication (Liraglutide (Victoza 3-Elias)) 1.8 mg DAILY08 SQ ; Start 07/11/19 at 10:00 Metoprolol Tartrate (Lopressor) 25 mg BID PO ; Start 07/11/19 at 11:00 Info (Anti-Coagulation Monitoring By Pharmacy) 1 each PRN DAILY PRN MC SEE COMMENTS Last administered on 07/11/19at 13:26; Start 07/11/19 at 12:45 Fentanyl Citrate (Fentanyl 2ml Vial) 100 mcg STK-MED ONCE .ROUTE ; Start 07/11/19 at 12:53; Stop 07/11/19 at 12:53; Status DC Midazolam HCl (Versed) 2 mg STK-MED ONCE .ROUTE ; Start 07/11/19 at 12:53; Stop 07/11/19 at 12:53; Status DC Heparin Sodium (Porcine) (Heparin Sodium) 10,000 unit STK-MED ONCE .ROUTE ; Start 07/11/19 at 12:53; Stop 07/11/19 at 12:53; Status DC Verapamil HCl (Verapamil) 5 mg STK-MED ONCE .ROUTE ; Start 07/11/19 at 12:53; Stop 07/11/19 at 12:53; Status DC Nitroglycerin (Nitroglycerin) 200 mcg STK-MED ONCE .ROUTE ; Start 07/11/19 at 12:54; Stop 07/11/19 at 12:54; Status DC Lidocaine HCl (Xylocaine-Mpf 1% 2ml Vial) 2 ml STK-MED ONCE .ROUTE ; Start 07/11/19 at 13:03; Stop 07/11/19 at 13:03; Status DC Nitroglycerin (Nitroglycerin) 200 mcg 1X ONCE IART Last administered on 07/11/19at 13:47; Start 07/11/19 at 13:15; Stop 07/11/19 at 13:20; Status DC Verapamil HCl (Verapamil) 2.5 mg 1X ONCE IART Last administered on 07/11/19 13:47; Start 07/11/19 at 13:15; Stop 07/11/19 at 13:20; Status DC Heparin Sodium (Porcine) (Heparin Sodium) 2,500 unit 1X ONCE IART Last administered on 07/11/19at 13:49; Start 07/11/19 at 13:15; Stop 07/11/19 at 13:20; Status DC Heparin Sodium/ Sodium Chloride (HEPARIN for ARTERIAL LINE FLUSH) 1,000 unit 1X ONCE IART Last administered on 07/11/19 13:46; Start 07/11/19 at 13:15; Stop 07/11/19 at 13:20; Status DC Midazolam HCl (Versed) 2 mg 1X ONCE IV Last administered on 07/11/19at 13:48; Start 07/11/19 at 13:15; Stop 07/11/19 at 13:20; Status DC Fentanyl Citrate (Fentanyl 2ml Vial) 100 mcg 1X ONCE IV Last administered on 07/11/19 13:47; Start 07/11/19 at 13:15; Stop 07/11/19 at 13:20; Status DC Iohexol (Omnipaque 300 Mg/ml) 100 ml 1X ONCE IART Last administered on 07/11/19 13:46; Start 07/11/19 at 13:15; Stop 07/11/19 at 13:20; Status DC Lidocaine HCl (Xylocaine-Mpf 1% 2ml Vial) 1 ml 1X ONCE INJ Last administered on 07/11/19at 13:47; Start 07/11/19 at 13:15; Stop 07/11/19 at 13:20; Status DC Bivalirudin (Angiomax) 250 mg STK-MED ONCE IV ; Start 07/11/19 at 13:19; Stop 07/11/19 at 13:19; Status DC Heparin Sodium/ Sodium Chloride 500 ml @ As Directed STK-MED ONCE .ROUTE ; Start 07/11/19 at 13:21; Stop 07/11/19 at 13:21; Status DC Bivalirudin (Angiomax) 250 mg 1X ONCE IV Last administered on 07/11/19at 13:46; Start 07/11/19 at 13:45; Stop 07/11/19 at 13:46; Status DC Prasugrel (Effient) 60 mg 1X ONCE PO Last administered on 07/11/19at 13:46; Start 07/11/19 at 13:45; Stop 07/11/19 at 13:46; Status DC Aspirin (Vinay Aspirin) 325 mg 1X ONCE PO Last administered on 07/11/19at 13:45; Start 07/11/19 at 13:45; Stop 07/11/19 at 13:46; Status DC Aspirin (Vinay Aspirin) 325 mg STK-MED ONCE .ROUTE ; Start 07/11/19 at 13:43; Stop 07/11/19 at 13:44; Status DC Prasugrel (Effient) 10 mg STK-MED ONCE .ROUTE ; Start 07/11/19 at 13:43; Stop 07/11/19 at 13:44; Status DC Active Scripts Active Reported Aspir-Low (Aspirin) 81 Mg Tablet.dr 1 Tab PO HS Vitamin E (Vitamin E Mixed) 400 Unit Capsule 400 Unit PO DAILY Fish Oil 1,000 Mg Capsule ([place]-3 Fatty Acids/Fish Oil) 1 Each Capsule 1 Each PO BIDAC Levemir (Insulin Detemir) 100 Unit/1 Ml Vial 40 Unit SQ HS Losartan-Hctz 100-25 Mg Tab (Losartan/Hydrochlorothiazide) 1 Each Tablet 1 Each PO DAILY Vtlrcnhxdr-Zkyeyibubmg-Msz Tab (Gluc/Addison-Msm#2/C/D3/Yong/Born) 1 Each Tablet 1 Each PO TID Meds not given this hospital admission. May resume home medications as approved by Physician. Multivitamins (Multivitamin) 1 Each Tablet 1 Tab PO DAILY LAST DOSE GIVEN: DATE:07/10/17 TIME:9:00 a.m. Cinnamon (Cinnamon Bark) 500 Mg Capsule 500 Mg PO BID Meds not given this hospital admission. May resume home medications as approved by Physician. Novolog (Insulin Aspart) 100 Unit/1 Ml Vial 12 Unit SQ TIDAC LAST DOSE GIVEN: DATE:07/10/17 TIME:12:00 Metformin Hcl Er (Metformin Hcl) 1,000 Mg Tab.er.24 1,000 Mg PO BID76 LAST DOSE GIVEN: DATE:07/10/17 TIME:8:00 a.m. Victoza 3-Elias (Liraglutide) 0.6 Mg/0.1 Ml Pen.injctr 1.8 Mg SQ DAILY08 Meds not given this hospital admission. May resume home medications as approved by Physician. Vitals/I & O Vital Sign - Last 24 Hours 07/10/19 07/10/19 07/10/19 07/10/19 16:55 17:00 19:30 20:00 Temp 97.7 97.4 97.7 97.4 Pulse 71 75 Resp 18 18 B/P (MAP) 179/60 (99) 152/70 (97) Pulse Ox 96 95 O2 Delivery Room Air Room Air Room Air Room Air 07/10/19 07/11/19 07/11/19 07/11/19 23:00 02:50 07:00 07:30 Temp 97.6 98.1 97.5 97.6 98.1 97.5 Pulse 76 72 67 Resp 20 20 20 B/P (MAP) 165/71 (102) 142/64 (90) 128/62 (84) Pulse Ox 97 95 93 O2 Delivery BiPAP/CPAP BiPAP/CPAP BiPAP/CPAP Room Air 07/11/19 07/11/19 07/11/19 07/11/19 09:04 11:00 13:47 13:47 Temp 97.5 97.5 Pulse 67 69 65 Resp 20 15 B/P (MAP) 128/62 123/58 (79) Pulse Ox 95 98 O2 Delivery BiPAP/CPAP Nasal Cannula O2 Flow Rate 2.0 07/11/19 13:50 Pulse 65 Resp 15 Pulse Ox 95 O2 Delivery Nasal Cannula O2 Flow Rate 2.0 Intake and Output 07/10/19 07/10/19 07/11/19 14:59 22:59 06:59 Intake Total 240 ml Balance 240 ml SUSANA AVALOS MD Jul 11, 2019 14:16
[2019-07-11] MEDS: MULTIVITAMIN with MINERAL TABLET. PO SCH (14:26)
[2019-07-11] MEDS: VITAMIN E 200 UNIT CAPSULE. PO SCH (14:26)
[2019-07-11] MEDS: METOPROLOL TART IMMED RELEASE 25 MG TABLET. PO SCH ×2 (14:28→22:16)
--- NOTE | 2019-07-11 16:25 | RAD ---
Chest CT without contrast Clinical indications: Left hilar density. History of chest pain. TECHNIQUE: Noncontrast helical CT scanning of the chest was performed. Without contrast, the sensitivity to detect organ pathology is decreased. PQRS compliance Statement One or more of the following individualized dose reduction techniques were utilized for this study: 1. Automated exposure control 2. Adjustment of the mA and/or kV according to patient size 3. Use of iterative reconstruction technique FINDINGS: No enlarged thoracic lymphadenopathy is evident. No focal aneurysmal dilatation of the thoracic aorta is seen. Calcified atheromatous disease of the coronary arteries is seen. The heart size is normal. No pericardial effusion is evident. No pleural effusion or pneumothorax is seen. Calcified granuloma of the lingula is seen. There is elevation of both hemidiaphragms more prominent on the left side. There is associated posterior left lung base atelectasis. Diffuse elevation of the left hemidiaphragm could be due to diaphragmatic paralysis. On the right side, focal eventration of the anterior aspect right hemidiaphragm is evident. A right adrenal nodule is seen which measures 22 mm. This measures 16 Hounsfield units. This most likely represents a right adrenal adenoma. No lytic process is seen. IMPRESSION: Elevation of the left hemidiaphragm which could be due to phrenic nerve paralysis. Associated posterior left lung base atelectasis. Focal eventration of the anterior aspect of the right hemidiaphragm. Calcified atheromatous disease of the coronary arteries. Normal heart size. No pericardial effusion. Probable right adrenal adenoma. Electronically signed by: Joe Hayes MD (07/11/2019 4:22 PM) [id number]
[2019-07-11] MEDS: INSULIN GLARGINE SYRINGE. SQ SCH (21:00)
[2019-07-11] MEDS: ASPIRIN ENTERIC COATED 81 MG TABLET.DR. PO SCH (22:16)
--- NOTE | 2019-07-11 22:18 | NUR ---
Patient refused Lantus. Glucose level 90 at HS. Patient requested sandwich for snack before taking his HS Lantus. There was not a box meal in frig. Radu OAKLEY went to other units to find a box lunch. Radu called Revenue Cycle Manager Zita to locate box lunches. Radu did not find box lunch on other units. Patient got tired of waiting for boxed lunch. Patient refused Lantus and went to bed. When Zita arrived with box lunch Radu OAKLEY offered to patient. Patient refused and stated he already had his CPAP on and was not going to eat now.
[2019-07-12 02:35] VITALS: BP 105/57
[2019-07-12 05:31] LABS: HEMATOCRIT 39.1 % (39.0-53.0); HEMOGLOBIN 13.1 g/dL (13.0-17.5); RED BLOOD COUNT 4.22 x10^6/uL (4.30-5.70); RED CELL DISTRIBUTION WIDTH 13.8 % (11.5-14.5); WHITE BLOOD COUNT 8.8 x10^3/uL (4.0-11.0)
[2019-07-12 07:00] VITALS: BP 145/65
[2019-07-12] MEDS: INSULIN LISPRO 300 UNITS/3 ML VIAL. SQ SCH ×4 (07:30→12:40)
[2019-07-12] MEDS: MULTIVITAMIN with MINERAL TABLET. PO SCH (08:23)
[2019-07-12] MEDS: hydroCHLOROthiazide 25 MG TABLET PO SCH (08:23)
[2019-07-12] MEDS: OMEGA-3 FATTY ACIDS/FISH OIL 1,000 MG CAPSULE. PO SCH (08:23)
[2019-07-12] MEDS: LOSARTAN POTASSIUM 50 MG TABLET. PO SCH (08:24)
[2019-07-12] MEDS: VITAMIN E 200 UNIT CAPSULE. PO SCH (08:25)
[2019-07-12] MEDS: METOPROLOL TART IMMED RELEASE 25 MG TABLET. PO SCH (08:25)
[2019-07-12] MEDS: LIRAGLUTIDE (VICTOZA) SQ SCH (08:29)
--- NOTE | 2019-07-12 09:31 | PDOC ---
PULMONARY PROGRESS NOTES Subjective PT FEELS BETTER LESS SOA Vitals Vital Signs Date Time Temp Pulse Resp B/P (MAP) Pulse Ox O2 Delivery O2 Flow Rate FiO2 07/12/19 08:25 70 145/65 07/12/19 07:00 97.5 16 96 Room Air 97.5 07/11/19 20:00 2.0 ROS: No Nausea, No Chest Pain, No Abdominal Pain, No Increase Cough Lungs: Clear Cardiovascular: S1, S2 Abdomen: Soft, Other (OBESE) Neuro Exam: Alert Extremities: No Edema Skin: Warm Labs Laboratory Tests Test 07/10/19 17:25 07/10/19 20:52 07/11/19 00:15 07/11/19 06:00 Glucose (Fingerstick) 98 mg/dL (70-99) 188 mg/dL (70-99) Troponin I Quantitative 12.301 ng/mL (0.000-0.055) 8.128 ng/mL (0.000-0.055) White Blood Count 6.6 x10^3/uL (4.0-11.0) Red Blood Count 4.01 x10^6/uL (4.30-5.70) Hemoglobin 12.5 g/dL (13.0-17.5) Hematocrit 37.3 % (39.0-53.0) Mean Corpuscular Volume 93 fL (79-100) Mean Corpuscular Hemoglobin 31 pg (25-35) Mean Corpuscular Hemoglobin Concent 34 g/dL (31-37) Red Cell Distribution Width 13.5 % (11.5-14.5) Platelet Count 207 x10^3/uL (140-400) Neutrophils (%) (Auto) 56 % (31-73) Lymphocytes (%) (Auto) 30 % (24-48) Monocytes (%) (Auto) 10 % (0-9) Eosinophils (%) (Auto) 3 % (0-3) Basophils (%) (Auto) 1 % (0-3) Neutrophils # (Auto) 3.7 x10^3/uL (1.8-7.7) Lymphocytes # (Auto) 2.0 x10^3/uL (1.0-4.8) Monocytes # (Auto) 0.6 x10^3/uL (0.0-1.1) Eosinophils # (Auto) 0.2 x10^3/uL (0.0-0.7) Basophils # (Auto) 0.1 x10^3/uL (0.0-0.2) Sodium Level 141 mmol/L (136-145) Potassium Level 3.7 mmol/L (3.5-5.1) Chloride Level 103 mmol/L (98-107) Carbon Dioxide Level 29 mmol/L (21-32) Anion Gap 9 (6-14) Blood Urea Nitrogen 15 mg/dL (8-26) Creatinine 0.8 mg/dL (0.7-1.3) Estimated GFR (Cockcroft-Gault) 95.0 Glucose Level 104 mg/dL (70-99) Calcium Level 8.8 mg/dL (8.5-10.1) Triglycerides Level 103 mg/dL (0-150) Cholesterol Level 179 mg/dL (0-200) LDL Cholesterol, Calculated 109 mg/dL (0-100) VLDL Cholesterol, Calculated 21 mg/dL (0-40) Non-HDL Cholesterol Calculated 130 mg/dL (0-129) HDL Cholesterol 49 mg/dL (40-60) Cholesterol/HDL Ratio 3.7 Test 07/11/19 07:08 07/11/19 11:48 07/11/19 17:06 07/11/19 20:48 Glucose (Fingerstick) 122 mg/dL (70-99) 131 mg/dL (70-99) 129 mg/dL (70-99) 90 mg/dL (70-99) Test 07/12/19 05:00 07/12/19 07:59 White Blood Count 8.8 x10^3/uL (4.0-11.0) Red Blood Count 4.22 x10^6/uL (4.30-5.70) Hemoglobin 13.1 g/dL (13.0-17.5) Hematocrit 39.1 % (39.0-53.0) Mean Corpuscular Volume 93 fL (79-100) Mean Corpuscular Hemoglobin 31 pg (25-35) Mean Corpuscular Hemoglobin Concent 34 g/dL (31-37) Red Cell Distribution Width 13.8 % (11.5-14.5) Platelet Count 204 x10^3/uL (140-400) Glucose (Fingerstick) 142 mg/dL (70-99) Laboratory Tests Test 07/11/19 11:48 07/11/19 17:06 07/11/19 20:48 07/12/19 05:00 Glucose (Fingerstick) 131 mg/dL (70-99) 129 mg/dL (70-99) 90 mg/dL (70-99) White Blood Count 8.8 x10^3/uL (4.0-11.0) Red Blood Count 4.22 x10^6/uL (4.30-5.70) Hemoglobin 13.1 g/dL (13.0-17.5) Hematocrit 39.1 % (39.0-53.0) Mean Corpuscular Volume 93 fL (79-100) Mean Corpuscular Hemoglobin 31 pg (25-35) Mean Corpuscular Hemoglobin Concent 34 g/dL (31-37) Red Cell Distribution Width 13.8 % (11.5-14.5) Platelet Count 204 x10^3/uL (140-400) Test 07/12/19 07:59 Glucose (Fingerstick) 142 mg/dL (70-99) Medications Active Scripts Medications Dose Route/Sig Max Daily Dose Days Date Category Dose Instructions Aspir-Low (Aspirin) 81 Mg Tablet.dr 1 Tab PO HS 07/10/19 Reported Vitamin E (Vitamin E Mixed) 400 Unit Capsule 400 Unit PO DAILY 07/10/19 Reported Fish Oil 1,000 Mg Capsule (Petoskey-3 Fatty Acids/Fish Oil) 1 Each Capsule 1 Each PO BIDAC 07/10/19 Reported Levemir (Insulin Detemir) 100 Unit/1 Ml Vial 40 Unit SQ HS 07/10/19 Reported Losartan-Hctz 100-25 Mg Tab (Losartan/Hydrochlorothiazide) 1 Each Tablet 1 Each PO DAILY 01/28/19 Reported Ebzfniorvs-Ueakgjzudlt-Pbr Tab (Gluc/Addison-Msm#2/C/D3/Yong/Born) 1 Each Tablet 1 Each PO TID 06/12/17 Reported Meds not given this hospital admission. May resume home medications as approved by Physician. Multivitamins (Multivitamin) 1 Each Tablet 1 Tab PO DAILY 06/12/17 Reported LAST DOSE GIVEN: DATE:07/10/17 TIME:9:00 a.m. Cinnamon (Cinnamon Bark) 500 Mg Capsule 500 Mg PO BID 06/12/17 Reported Meds not given this hospital admission. May resume home medications as approved by Physician. Novolog (Insulin Aspart) 100 Unit/1 Ml Vial 12 Unit SQ TIDAC 06/12/17 Reported LAST DOSE GIVEN: DATE:07/10/17 TIME:12:00 Metformin Hcl Er (Metformin Hcl) 1,000 Mg Tab.er.24 1,000 Mg PO BID76 06/12/17 Reported LAST DOSE GIVEN: DATE:07/10/17 TIME:8:00 a.m. Victoza 3-Elias (Liraglutide) 0.6 Mg/0.1 Ml Pen.injctr 1.8 Mg SQ DAILY08 06/12/17 Reported Meds not given this hospital admission. May resume home medications as approved by Physician. Impression . IMPRESSION: 1. Left-sided chest pain, likely related to non-ST myocardial infarction with markedly elevated troponin level of 12. 2. CAD SEE BELOW 3. Hazy density in the left perihilar area could be a vascular shadow 4. History of obstructive sleep apnea with good compliance with CPAP. 5. MORBID OBESITY CT CHEST IMPRESSION: Elevation of the left hemidiaphragm which could be due to phrenic nerve paralysis. Associated posterior left lung base atelectasis. Focal eventration of the anterior aspect of the right hemidiaphragm. Calcified atheromatous disease of the coronary arteries. Normal heart size. No pericardial effusion. Probable right adrenal adenoma. Conclusion 1. Normal left sided filling pressures. 2. Three vessel coronary disease with culprit in the LAD 3. Successful insertion of a Resolute Maxi 4.0/18 TIFFANY in the proximal LAD. Recommendations ASA 81mg daily Prasugrel 10mg daily Patient has previous statin intolerance Agggressive risk factor modification Plan . PT HAS USED COMBIVENT IN PAST NO IMPROVEMENT IN SYMPTOMS MAY NEED OUTPT PFT FOLLOW CARD INPUT CT REVEALED L HEMIDIAPHRM ELEVATION PT STATES THIS IS NOT NEW WILL D/W OPTIONS OF SLEEP STUDY TOMORROW ESTEBAN ARCHIBALD MD Jul 12, 2019 09:31
[2019-07-12] MEDS ORDERED: PRASUGREL 10 MG TABLET. PO SCH (09:45)
[2019-07-12 11:00] VITALS: BP 116/53
--- NOTE | 2019-07-12 11:42 | PDOC ---
[facility] PROGRESS NOTE Chief Complaint Chief Complaint NSTEMI Shortness of breath Hypomagnesemia DM 2 HTN KATERYNA RLE DVT History of Present Illness History of Present Illness 07/12/19 Pt seen and examined at bedside Stent placed in LAD Doing well, was resting in bed Accompanied by Possible DC today Charts and labs reviewed 07/11/[address] Herrera Cardiac cath today Cont tele BP control CV following Plan DC in AM Vitals/I&O Vitals/I&O: Vital Signs Date Time Temp Pulse Resp B/P (MAP) Pulse Ox O2 Delivery O2 Flow Rate FiO2 07/12/19 08:25 70 145/65 07/12/19 08:00 Room Air 07/12/19 07:00 97.5 16 96 97.5 07/11/19 20:00 2.0 I & O 07/11/19 07/11/19 07/12/19 15:00 23:00 07:00 Intake Total 200 ml Balance 200 ml Physical Exam General: Alert, Oriented X3, Cooperative, No acute distress Heart: Regular rate, Normal S1, Normal S2, No murmurs Lungs: Clear Abdomen: Normal bowel sounds, Soft, No tenderness, Other (obese ) Extremities: No clubbing, No cyanosis, No edema, Normal pulses Skin: No significant lesion Labs Labs: Laboratory Tests Test 07/11/19 11:48 07/11/19 17:06 07/11/19 20:48 07/12/19 05:00 Glucose (Fingerstick) 131 mg/dL (70-99) 129 mg/dL (70-99) 90 mg/dL (70-99) White Blood Count 8.8 x10^3/uL (4.0-11.0) Red Blood Count 4.22 x10^6/uL (4.30-5.70) Hemoglobin 13.1 g/dL (13.0-17.5) Hematocrit 39.1 % (39.0-53.0) Mean Corpuscular Volume 93 fL (79-100) Mean Corpuscular Hemoglobin 31 pg (25-35) Mean Corpuscular Hemoglobin Concent 34 g/dL (31-37) Red Cell Distribution Width 13.8 % (11.5-14.5) Platelet Count 204 x10^3/uL (140-400) Test 07/12/19 07:59 Glucose (Fingerstick) 142 mg/dL (70-99) Review of Systems Review of Systems: No nausea, no vomiting No chest pain, no palpitations Assessment and Plan Assessmemt and Plan Assessment NSTEMI Hypomagnesemia DM2 CAD HTN Plan 2 mg Magnesium sulfate Wound care Labs PT/OT Continue CPAP for KATERYNA Discharge per cardiology Comment Review of Relevant I have reviewed the following items rachel (where applicable) has been applied. Medications: Current Medications Medications (Trade) Dose Ordered Sig/Mary Route PRN Reason Start Time Stop Time Status Last Admin Dose Admin Info (Anti-Coagulation Monitoring By Pharmacy) 1 each PRN DAILY PRN MC SEE COMMENTS 07/11/19 12:45 07/11/19 13:26 Nitroglycerin (Nitroglycerin) 200 mcg 1X ONCE IART 07/11/19 13:15 07/11/19 13:20 DC 07/11/19 13:47 Verapamil HCl (Verapamil) 2.5 mg 1X ONCE IART 07/11/19 13:15 07/11/19 13:20 DC 07/11/19 13:47 Heparin Sodium (Porcine) (Heparin Sodium) 2,500 unit 1X ONCE IART 07/11/19 13:15 07/11/19 13:20 DC 07/11/19 13:49 Heparin Sodium/ Sodium Chloride (HEPARIN for ARTERIAL LINE FLUSH) 1,000 unit 1X ONCE IART 07/11/19 13:15 07/11/19 13:20 DC 07/11/19 13:46 Midazolam HCl (Versed) 2 mg 1X ONCE IV 07/11/19 13:15 07/11/19 13:20 DC 07/11/19 13:48 Fentanyl Citrate (Fentanyl 2ml Vial) 100 mcg 1X ONCE IV 07/11/19 13:15 07/11/19 13:20 DC 07/11/19 13:47 Iohexol (Omnipaque 300 Mg/ml) 100 ml 1X ONCE IART 07/11/19 13:15 07/11/19 13:20 DC 07/11/19 13:46 Lidocaine HCl (Xylocaine-Mpf 1% 2ml Vial) 1 ml 1X ONCE INJ 07/11/19 13:15 07/11/19 13:20 DC 07/11/19 13:47 Bivalirudin (Angiomax) 250 mg 1X ONCE IV 07/11/19 13:45 07/11/19 13:46 DC 07/11/19 13:46 Prasugrel (Effient) 60 mg 1X ONCE PO 07/11/19 13:45 07/11/19 13:46 DC 07/11/19 13:46 Aspirin (Vinay Aspirin) 325 mg 1X ONCE PO 07/11/19 13:45 07/11/19 13:46 DC 07/11/19 13:45 Prasugrel (Effient) 10 mg [id number] PO 07/12/19 09:45 07/12/19 10:34 ZEINAB TUCKER III DO Jul 12, 2019 11:42
[2019-07-12] MEDS ORDERED: MAGNESIUM SULFATE 2GM 50 ML IV ONE (12:00)
--- NOTE | 2019-07-12 13:21 | PDOC ---
TERE KLEIN DIRECTOR OF ALUMNI RELATIONS 07/12/19 1321: CARDIO Progress Notes Date and Time Date of Service 07/12/2019 Time of Evaluation 1320 Subjective Subjective: No Chest Pain, No shortness of breath, No Palpitations Vitals Vitals Vital Signs Date Time Temp Pulse Resp B/P (MAP) Pulse Ox O2 Delivery O2 Flow Rate FiO2 07/12/19 11:00 97.3 64 16 116/53 (74) 94 Nasal Cannula 97.3 07/11/19 20:00 2.0 Weight Weight [ ] Input and Output Intake and Output Intake and Output 07/12/19 07:00 Intake Total 200 ml Balance 200 ml Intake Oral 200 ml # Voids 1 Laboratory Labs Laboratory Tests Test 07/11/19 17:06 07/11/19 20:48 07/12/19 05:00 07/12/19 07:59 Glucose (Fingerstick) 129 mg/dL (70-99) 90 mg/dL (70-99) 142 mg/dL (70-99) White Blood Count 8.8 x10^3/uL (4.0-11.0) Red Blood Count 4.22 x10^6/uL (4.30-5.70) Hemoglobin 13.1 g/dL (13.0-17.5) Hematocrit 39.1 % (39.0-53.0) Mean Corpuscular Volume 93 fL (79-100) Mean Corpuscular Hemoglobin 31 pg (25-35) Mean Corpuscular Hemoglobin Concent 34 g/dL (31-37) Red Cell Distribution Width 13.8 % (11.5-14.5) Platelet Count 204 x10^3/uL (140-400) Magnesium Level 2.0 mg/dL (1.8-2.4) Test 07/12/19 11:25 Glucose (Fingerstick) 125 mg/dL (70-99) Physical Exam HEENT: Neck Supple W Full Motion Chest: Symmetric LUNGS: Clear to Auscultation Heart: S1S2, RRR Abdomen: Soft N/T Extremities: No Calf Tenderness Neurology: alert, oriented, follow commands Assessment Assessment 1. NSTEMI: LHC revealed 3VD wuith culprit LAD, S/P PCI/TIFFANY to LAD 2. HTN: controlled 3. HLP: LDL 109 4. KATERYNA: CPAP 5. DM2 6. Morbid obesity Recommendations 1. Effient and ASA 2. Cardiac rehab. Follow up in office. 3. Was not able to complete TTE. will obtain as an outpt 4. Secondary prevention measures 5. Allergy to statin. Will arrange for outpt start of [id number] JULIANA MELGAR MD 07/12/19 1754: CARDIO Progress Notes Plan Plan Patient seen and examined. Agree with above nurse practitioner note. TERE KLEIN APRN Jul 12, 2019 13:21 JULIANA MELGAR MD Jul 12, 2019 17:54
--- NOTE | 2019-07-12 14:00 | CARD ---
MR#: [id number] Date of Study: 07/11/2019 Ordering Physician: DONA SHEPPARD, Referring Physician: DONA SHEPPARD, Tech: Tara Blandon APPROVED REPORT EXAM: Two-dimensional and M-mode echocardiogram with Doppler and color Doppler. Other Information Quality : PoorHR: 67bpm INDICATION COPD Chest Pain RISK FACTORS Hypertension Hyperlipidemia Diabetes Mitral Valve MV E Vyoobgae22.5cm/sMV DECEL RESB334ym MV A Vjtvawgm32.9cm/sE/A Ratio0.6 TDI Medial E' P. V4.25cm/sE/Medial E'8.8 LEFT VENTRICLE Wall motion indeterminate. Transmitral Doppler flow pattern is Grade I-abnormal relaxation pattern. AORTIC VALVE The aortic valve is not visualized. Doppler and color-flow analysis was not performed. MITRAL VALVE The mitral valve is not well visualized. Doppler and color-flow analysis was not performed. TRICUSPID VALVE The tricuspid valve is not well visualized. Doppler and color-flow analysis was not performed. PULMONIC VALVE The pulmonic valve is not well visualized. Doppler and color-flow analysis was not performed. GREAT VESSELS The aortic root is not well visualized. The IVC is dilated and collapses >50% with inspiration. PERICARDIAL EFFUSION There is no evidence of significant pericardial effusion. Critical Notification Critical Value: No <Conclusion> Non-diagnostic surface echocardiogram Consider echo with contrast and or other methods for evaluation of LV function. Signed by : Adán Campos, Electronically Approved : 07/12/2019 14:00:34
[2019-07-12] MEDS ORDERED: PRAS10TA9 PO (14:35)
[2019-07-12] MEDS ORDERED: METO25TA4 PO (14:38)
--- NOTE | 2019-07-12 15:42 | NUR ---
Discharge Note: MANDY TRIPP Discharge instructions and discharge home medications reviewed with Patient and a copy given. All questions have been answered and understanding verbalized. Follow up appointment information given to patient. The following instructions and handouts were given: Post cardiac catheterization care, chest pain, cardiac rehab, and effient tablets Discontinued lines and drains: Peripheral IV intact. Patient discharged to Home or Self Care with Family Member via Wheelchair
--- NOTE | 2019-07-15 08:55 | DS ---
DATE OF DISCHARGE: 07/12/2019 ADMISSION DIAGNOSES: Chest pain with elevated troponin. DISCHARGE DIAGNOSES: Resolving acute myocardial infarction and he got 1 new stent to the left anterior descending. HOSPITAL COURSE: The patient is a pleasant 73-year-old male, who presented with elevated troponin and chest pain. He was admitted. We took him to the greens laborer. He got a stent to the LAD. Post-procedure, he did well. We discharged to home. DISPOSITION: Home. ACTIVITY: As tolerated. DIET: Cardiac. MEDICATIONS: Please see the MRAD. TOTAL TIME: 32 minutes. ZEINAB TUCKER DO DR: ARA/tiago JOB#: [id number] / [id number]
== END 2019-07-12 15:30 | disposition home or self-care (01) | DRG 247 ==
LOC: 2 NORTH 17:57
PROVIDERS: ADMIT Internal Medicine; ATTEND Internal Medicine
PROC: 5A09357 Assistance with Respiratory Ventilation, Less than 24 Consecutive Hours, Continuous Positive Airway Pressure (ICD-10-PCS; principal; 2019-07-10)
PROC: 027034Z Dilation of Coronary Artery, One Artery with Drug-eluting Intraluminal Device, Percutaneous Approach (ICD-10-PCS; 2019-07-11)
PROC: 5A09357 Assistance with Respiratory Ventilation, Less than 24 Consecutive Hours, Continuous Positive Airway Pressure (ICD-10-PCS; 2019-07-11)
PROC: 4A023N7 Measurement of Cardiac Sampling and Pressure, Left Heart, Percutaneous Approach (ICD-10-PCS; 2019-07-11)
PROC: B2111ZZ Fluoroscopy of Multiple Coronary Arteries using Low Osmolar Contrast (ICD-10-PCS; 2019-07-11)
DX: I21.4 Non-ST elevation (NSTEMI) myocardial infarction (principal); J98.11 Atelectasis; Z68.41 Body mass index [BMI] 40.0-44.9, adult; I10 Essential (primary) hypertension; E11.9 Type 2 diabetes mellitus without complications; E66.01 Morbid (severe) obesity due to excess calories; E78.5 Hyperlipidemia, unspecified; E83.42 Hypomagnesemia; G47.33 Obstructive sleep apnea (adult) (pediatric); I25.110 Atherosclerotic heart disease of native coronary artery with unstable angina pectoris; J45.909 Unspecified asthma, uncomplicated; Z80.9 Family history of malignant neoplasm, unspecified; Z82.49 Family history of ischemic heart disease and other diseases of the circulatory system; Z83.3 Family history of diabetes mellitus; Z86.718 Personal history of other venous thrombosis and embolism; Z87.891 Personal history of nicotine dependence; Z96.652 Presence of left artificial knee joint; Z98.61 Coronary angioplasty status; M19.90 Unspecified osteoarthritis, unspecified site; Z88.8 Allergy status to other drugs, medicaments and biological substances
CPT/HCPCS: 36415; 71250; 80048; 80061; 82962; 83735; 84484; 85025; 85027; 92928; 93005; 93308; 93458; 99152; 99153; C1725; C1769; C1874; C1892; J0583; J1644; J1650; J1815; J2250; J3010; J3475; J3490; Q9967; G0378

== ENCOUNTER 2020-05-01 12:19 | Day surgery (SDC) | payer MEDICARE, BC ==
[~2020-05-01] VITALS: Ht 154.9 cm; Wt 154.0 kg
[~2020-05-01 12:19] MED LIST changes: +ASPI81TA50 PO; +DEXAMETHASONE SOD PHOS 4 MG/ML VIAL ONE; +HYDROmorphone 2 MG/ML VIAL IV PRN; +IV RINGERS,LACTATED 1000ML 1,000 ML IV SCH; +LIDOCAINE 1% PF 2 ML VIAL. ID PRN; +LIDOCAINE 2% PF 5 ML VIAL. ONE; +METO25TA4 PO; +MIDAZOLAM HCL/PF 2 MG/2 ML VIAL. ONE; +MORPHINE SULFATE 2 MG/ML VIAL. IV PRN; +MULT-445 PO; -MULT1TAB52 PO; +ONDANSETRON PF 4 MG/2 ML VIAL. IV PRN; +ONDANSETRON PF 4 MG/2 ML VIAL. ONE; +PRAS10TA9 PO; +PROCHLORPERAZINE 10 MG/2 ML VIAL. IV PRN; +PROPOFOL 10 MG/ML (20ML) VIAL. IV ONE; +ROCURONIUM 50 MG/5 ML VIAL. ONE; +SEVOFLURANE > 120 MINUTES. IH ONE; +VITA-8 PO; +ceFAZolin SODIUM 3 GM in IV DEXTROSE 5% 100ML 100 ML IV PRN; +fentaNYL PF VIAL 100 MCG/2 ML VIAL IV PRN; +fentaNYL PF VIAL 100 MCG/2 ML VIAL ONE
[2020-05-01] MEDS ORDERED: BUPIVACAINE-EPI 0.5%-1:200000 MPF 30 ML VIAL. ONE (13:40)
[2020-05-01] MEDS ORDERED: GELATIN SPONGE SIZE 100. ONE (13:40)
[2020-05-01] MEDS ORDERED: CHLORHEXIDINE 0.12% 15 ML MOUTHWASH. ONE (13:40)
[2020-05-01] MEDS ORDERED: INSULIN LISPRO 100 UNIT/ML 3ML VIAL for OP,RR ONLY. SQ PRN (13:45)
[2020-05-01] MEDS ORDERED: PHENYLEPHRINE in 0.9% NACL PF 1 MG/10 ML SYRINGE. IV ONE (14:40)
[2020-05-01] MEDS ORDERED: PROPOFOL 10 MG/ML (20ML) VIAL. IV ONE (14:51)
[2020-05-01] MEDS ORDERED: NEOSTIGMINE 10 MG/10 ML VIAL. ONE (14:58)
[2020-05-01] MEDS ORDERED: GLYCOPYRROLATE 1 MG/5 ML VIAL. ONE (15:04)
[2020-05-01] MEDS ORDERED: ePHEDrine PF IN SALINE 50 MG/10 ML SYRINGE. IV ONE (15:07)
--- NOTE | 2020-05-01 15:40 | PDOC4 ---
OPERATIVE NOTE Date: Date: May 01, 2020 Pre-Op Diagnosis: CAD COPD morbid obesity KATERYNA Carious non restorable teeth 4,5,6,7,8,9,11,12,13,14,15,20,21,22,23,24,25,26,27,28,29 Post-Op Diagnosis: same Procedure Performed: surgical removal of Carious non restorable teeth 4,5,6, 7,8,9,11,12,13,14,15,20,21,22,23,24,25,26,27,28,29 4 quadrants of alveoloplasty UR/UL/LL/LR Surgeon: hannah Anesthesia Type: funmi Blood Loss: 50 Specimans Obtained: none teeth disposed of in OR Findings: see dictation Complications: none Operative Note: surgical removal of Carious non restorable teeth 4,5,6,7,8,9,11,12,13,14,15,20,21,22,23,24,25,26,27,28,29 4 quadrants of alveoloplasty UR/UL/LL/LR LAVINIA OBRIEN DMD May 01, 2020 15:40
[2020-05-01] MEDS ORDERED: HYDR-2761 PO (15:52)
--- NOTE | 2020-05-01 16:10 | OP ---
DATE OF SURGERY: 05/01/2020 OPERATING SERVICE: assembler dc field ring. ATTENDING PHYSICIAN: Wilman Obrien DMD PREOPERATIVE DIAGNOSES: Coronary artery disease, chronic obstructive pulmonary disease, diabetes mellitus, morbid obesity and also caries, nonrestorable teeth numbers 4, 5, 6, 7, 8, 9, 11, 12, 13, 14, 15, 20, 21, 22, 23, 24, 25, 26, 27, 28, 29. POSTOPERATIVE DIAGNOSES: Coronary artery disease, chronic obstructive pulmonary disease, diabetes mellitus, morbid obesity and also caries, nonrestorable teeth numbers 4, 5, 6, 7, 8, 9, 11, 12, 13, 14, 15, 20, 21, 22, 23, 24, 25, 26, 27, 28, 29. PROCEDURES PERFORMED: Surgical removal of aforementioned teeth 4, 5, 6 7, 8, 9, 11, 12, 13, 14, 15, 20, 21, 22, 23, 24, 25, 26, 27, 28, 29. Four quadrants of alveoloplasty upper right, upper left, lower right, lower left. BRIEF HISTORY: The patient was referred to our clinic from outside dentist for removal of caries, nonrestorable teeth. Given his morbid obesity, COPD, coronary artery disease and anxiety, I felt the safest to escalate the setting of care to the OR. The patient's history and physical performed in our clinic and permit was obtained prior to surgery. DRAINS PLACED: None. SPECIMEN SENT: Anterior maxillary tissue associated with non-vital teeth #9 and 10 and 11 area. ESTIMATED BLOOD LOSS: Approximately 50 mL. DRAINS PLACED: None. COMPLICATIONS: None noted at the time of surgery. OPERATIVE DESCRIPTION: After the history and physical was updated in the preoperative holding area, the patient was transported by the Anesthesia Service to the operating suite, placed in the supine position. General anesthesia was induced. All pressure points were checked. The arm boards were left in place to help with the patient's balance as the patient is morbidly obese. A timeout was initiated. All surgical staff was in agreeance. Surgery began with placement of a moistened throat pack into the oropharynx. Approximately 20 mL of 0.5% Marcaine, 1:200,000 epinephrine were administered at the beginning of the procedure. An additional 10 mL were administered at the culmination of the procedure. Surgery began in the upper right hand quadrant continuing to the upper left, lower right and lower left. A #15 blade was utilized to create a full thickness mucoperiosteal flap, which was reflected buccally. All teeth were then luxated, elevated and extracted. Teeth specifically again were 4, 5, 6, 7, 8, 9, 11, 12, 13, 14, 15, 20, 21, 22, 23, 24, 25, 26, 27, 28, 29. Following the teeth removal, all extraction sites were curetted. There was a large periapical pale colored granulomatous lesion that was associated with the non-vital teeth 9/10 and possibly 11. I believe this was a periapical granuloma. This specimen was sent to pathology to rule out any pathology for permanent specimen analysis. The specimen was approximately 1 x 1 cm and again was pale in color. Alveoloplasty was performed with hand instruments. All bony undercuts were removed with rongeurs, bone file, curettage and copious normal sterile saline irrigation to smooth the jaw bones. The patient had dentures to fit, was checked and found to be appropriate. The minor rotary instrumentation was utilized to the lower denture. The sites were then lavaged and suctioned with normal sterile saline. Gelfoam was placed in each site and the sites were then oversewn with 3-0 chromic gut sutures in a running locked fashion in all 4 quadrants, upper right, upper left, lower right, lower left. The oral cavity was then lavaged, suctioned and the moistened throat pack was removed. An OG was passed and the stomach was decompressed. The patient was then returned to the care of Anesthesia, where he was awakened and extubated without complication and transported to the PACU in stable condition. WILMAN OBRIEN DMD DR: Kevin JOB#: [id number] / [id number] CODY
[2020-05-01] MEDS ORDERED: HYDROcodone/APAP 5/325MG 1 TAB TABLET PO ONE (16:15)
[2020-05-01 16:16] VITALS: BP 148/71
== END 2020-05-01 16:45 | disposition home or self-care (01) ==
LOC: SURG 12:19
PROVIDERS: ATTEND Dentist Oral and Maxillofacial Surgery
DX: K02.9 Dental caries, unspecified (principal); F43.0 Acute stress reaction; Z11.59 Encounter for screening for other viral diseases; I25.10 Atherosclerotic heart disease of native coronary artery without angina pectoris; G47.33 Obstructive sleep apnea (adult) (pediatric); E11.9 Type 2 diabetes mellitus without complications; J44.9 Chronic obstructive pulmonary disease, unspecified; F41.9 Anxiety disorder, unspecified; Z79.899 Other long term (current) drug therapy
CPT/HCPCS: 41874; 82962; 87426; A7015; J1100; J2370; J2405; J2704; J2710; J3010; J3490; J7120; U0003; J2250